=== PATIENT | male | born 1960 | race Caucasian/White ===

== ENCOUNTER → 2017-01-01 | Outpatient (CLI) | payer OTHER ==
[2017-01-01 11:58] LABS: Basophils # (A) 0.1 k/uL (0-0.2); Basophils % (A) 1 %; CHCM 33.3; Eosinophils # (A) 0.1 k/uL (0-0.7); Eosinophils % (A) 1 %; HCT 53.7 % (39.0-53.0); HDW 2.59; HGB 17.6 gm/dL (13.0-17.5); Luc # (Auto) 0.14; Luc % (Auto) 2; Lymphocytes # (A) 1.6 k/uL (1.0-4.8); Lymphocytes % (A) 22 %; MCH 30.7 pg (25.0-35.0); MCHC 32.9 g/dL (31.0-37.0); MCV 93.4 fL (80.0-100.0); Mean Platelet Volume 7.3; Monocytes # (A) 0.4 k/uL (0-1.0); Monocytes % (A) 5 %; Neutrophils # (A) 4.9 k/uL (1.3-7.7); Neutrophils % (A) 69 %; RBC 5.75 m/uL (4.30-5.90); RDW 13.9 % (11.5-15.5); WBC 7.2 k/uL (3.8-10.6); WBC (Perox) 6.69
[2017-01-01 12:14] LABS: ALT 42 U/L (21-72); AST 27 U/L (17-59); Alkaline Phosphatase 60 U/L (38-126); Anion Gap 9 mmol/L; Blood Urea Nitrogen 17 mg/dL (9-20); Calcium 9.7 mg/dL (8.4-10.2); Carbon Dioxide 28 mmol/L (22-30); Chloride 106 mmol/L (98-107); Glucose 101 mg/dL (74-99); Non-African American GFR(MDRD) >60 (>60 ml/min/1.73 sqM); Potassium 4.5 mmol/L (3.5-5.1); Sodium 143 mmol/L (137-145); Total Bilirubin 0.7 mg/dL (0.2-1.3); Total Protein 7.3 g/dL (6.3-8.2)
[2017-01-01 12:24] LABS: INR 1.1 (<1.1); Prothrombin Time 10.8 sec (9.0-12.0)
[2017-01-01 12:44] LABS: Prostate Specific Antigen 3.14 ng/mL (0.00-4.00)
--- NOTE | 2017-01-01 13:52 | CT ---
EXAMINATION TYPE: CT abdomen pelvis w con DATE OF EXAM: 01/01/2017 COMPARISON: NONE HISTORY: ABDOMINAL PAIN BELOW UMBILICAL AREA [address] DLP: 1024 mGycm, Automated Exposure Control for Dose Reduction was Utilized. CONTRAST: CT scan of the abdomen and pelvis is performed with oral and with IV Contrast, patient injected with 100 mL of Omnipaque 300. FINDINGS: LUNG BASES: No significant abnormality is appreciated. LIVER/GB: There is nonspecific 1.6 cm hypodense lesion right hepatic dome posteriorly on axial image 12. Hounsfield units average 47. Solid lesion cannot be excluded. There is additional is nonspecific subcentimeter lesion anterior to this. PANCREAS: No significant abnormality is seen. SPLEEN: No significant abnormality is seen. ADRENALS: No significant abnormality is seen. KIDNEYS: No significant abnormality is seen. BOWEL: The oral contrast reaches level of rectum. There is no suspicious small or large bowel dilat ation seen. No suspicious bowel containing ventral wall hernia is seen. PROSTATE/SEMINAL VESICLES: Prostate gland is heterogeneous in appearance and slightly prominent in si ze bulging towards bladder base, clinical correlation for BPH is advised. LYMPH NODES: No greater than 1cm abdominal or pelvic lymph nodes are appreciated. OSSEOUS STRUCTURES: There is sacralized L5 segment. OTHER: There is tiny fat-containing umbilical hernia. There is possible 1.4 cm left epididymal the superior to testicle on axial image 87. IMPRESSION: 1. No significant acute finding is seen to account for patient's clinical symptoms. 2. Nonspecific 1. 6 cm right hepatic dome lesion, solid lesion cannot be excluded, follow-up nonemergent multiphasic candace protocol contrast-enhanced CT or MRI can be performed to further evaluate and characterize if phil ired. 3. Other incidental findings as noted above. Case discussed with ordering nurse practitioner via telephone at time of dictation.
== END ==
LOC: RADCTMAIN 11:20
PROVIDERS: ATTEND Nurse Practitioner Adult Health
DX: Z08 Encounter for follow-up examination after completed treatment for malignant neoplasm (principal); Z12.5 Encounter for screening for malignant neoplasm of prostate; R04.0 Epistaxis; M54.5 Low back pain
CPT/HCPCS: 84153; 80053; 85025; 85610; 74177; 36415; Q9967

== ENCOUNTER → 2017-01-04 | Outpatient (CLI) | payer OTHER ==
--- NOTE | 2017-01-04 09:06 | US ---
EXAMINATION TYPE: US prostate transrectal DATE OF EXAM: 01/04/2017 COMPARISON: CT from 3 days ago. CLINICAL HISTORY: N40.[address] This examination was performed using the transrectal probe. EXAM MEASUREMENTS: Gland Size: 4.3 x 3.0 x 4.7 Volume: 32.1 ml Predicted PSA: 3.85 Actual PSA (if available):3.14 Heterogeneous gland without specific nodule seen. Initial images show seminal vesicles to appear within normal limits. Prostate gland is confirmed slig htly enlarged in size and heterogeneous in appearance. No worrisome nodules are identified. IMPRESSION: Slightly enlarged prostate gland consistent with BPH is confirmed. No worrisome nodules are evident.
--- NOTE | 2017-01-04 09:07 | US ---
EXAMINATION TYPE: US scrotum with doppler. Grayscale and color Doppler Duplex imaging performed of t jose de jesus scrotum. DATE OF EXAM: 01/04/2017 COMPARISON: CT CLINICAL HISTORY: N50.3 cyst of epididymis. EXAM MEASUREMENTS: TESTICLES: Right Testicle: 4.6 x 1.3 x 2.4 cm Left Testicle: 3.2 x 1.5 x 2.6 cm EPIDIDYMIS HEAD: Right Epididymis: 1.0 x 0.7 cm Left Epididymis: 0.9 x 0.4 cm Doppler performed to assess for testicular vascularity; good bilateral color flow and waveforms are s een. There is no evidence of testicular torsion. Heterogeneous echotexture to right testicle. 1.8 x 1.2 cm cystic area, spermatocele versus epi head c yst, small amount of free fluid adjacent to this. IMPRESSION: 1. ABNORMAL APPEARANCE TO THE RIGHT TESTICLE. AN INFILTRATIVE PROCESS IS NOT EXCLUDED. 2. LEFT EPIDIDYMAL HEAD CYST. RECOMMENDATION: Urologic consult.
== END | disposition home or self-care (01) ==
LOC: RADUSMAIN 07:58
PROVIDERS: ATTEND Family Medicine
DX: N50.3 Cyst of epididymis (principal); N40.0 Benign prostatic hyperplasia without lower urinary tract symptoms; R93.8 Abnormal findings on diagnostic imaging of other specified body structures
CPT/HCPCS: 76870; 76872; 93975

== ENCOUNTER → 2017-02-12 | Outpatient (CLI) | payer OTHER ==
--- NOTE | 2017-02-12 21:13 | MR ---
EXAMINATION TYPE: MR liver wo/w con DATE OF EXAM: 02/12/2017 COMPARISON: CT abdomen and pelvis January 01, 2017. HISTORY: Abnormal findings on CT 01/01/2017. Unspecified liver disease also per order. CONTRAST: Standard multiplanar, multisequence MRI departmental protocol utilizing 15 mL intravenous MultiHance gadolinium contrast. Exam is performed of the abdomen focusing on liver. FINDINGS: LIVER/BILIARY SYSTEM: Liver is overall normal in size. Corresponding to abnormal lesion right hepatic dome there is roughly 1.4 x 0.9 cm oval lesion of T1 hypointensity and T2 hyperintensity. Dynamic po stcontrast images show some heterogeneous peripheral enhancement with progressive centripetal filling . Imaging characteristics consistent with hemangioma. Anterior to this is scattered throughout the re mainder of liver there are 4-6 additional subcentimeter lesions of similar imaging characteristics fe lt to reflect additional smaller hemangiomas. No worrisome intrahepatic or extra hepatic biliary dila tation is seen. Gallbladder is unremarkable. OTHER: Lung bases are clear. The spleen, pancreas, and both adrenal glands are normal in size and carolee ear grossly unremarkable. No suspicious solid or cystic renal mass or hydronephrosis is evident bilat erally. There is suspected tiny simple elongated subcentimeter cyst posteriorly upper pole level left kidney on coronal image 34 series 301. No suspicious bowel dilatation seen. No concerning abdominal fluid collection is present. No greater than 1 cm abdominal adenopathy is identified. Visualized osse ous structures are intact. IMPRESSION: Suspicious liver lesion on CT has imaging characteristics consistent with hemangioma. Seen better on MRI versus CT there are 4-6 additional scattered subcentimeter lesions of similar imaging characteris tics consistent with smaller benign hemangiomas. No worrisome solid or cystic intrahepatic mass is pr esent.
== END | disposition home or self-care (01) ==
LOC: RADMRIMAIN 18:02
PROVIDERS: ATTEND Nurse Practitioner Adult Health
DX: K76.9 Liver disease, unspecified (principal)
CPT/HCPCS: 74183; A9577

== ENCOUNTER → 2017-02-22 | Outpatient (CLI) | payer OTHER ==
--- NOTE | 2017-02-22 17:12 | XR ---
EXAMINATION TYPE: XR thoraco lumbar junction DATE OF EXAM: 02/22/2017 COMPARISON: NONE HISTORY: Back pain TECHNIQUE: 2 views FINDINGS: Frontal and lateral views of the lumbar spine including the lower thoracic spine were obtai saundra. Vertebra are normal alignment. There is mild anterior spurring at T11-12 and T12-L1. There is no comp ression fracture. Posterior elements appear intact. IMPRESSION: Mild spurring. No fracture seen.
== END | disposition home or self-care (01) ==
LOC: RADXRMAIN 16:47
PROVIDERS: ATTEND Nurse Practitioner Adult Health
DX: M46.05 Spinal enthesopathy, thoracolumbar region (principal)
CPT/HCPCS: 72080

== ENCOUNTER 2018-07-04 08:43 | Day surgery (SDC) | payer OTHER ==
[2018-07-01 15:24] VITALS: BMI 25.8
[~2018-07-04 08:43] MED LIST: LACTATED RINGERS 1,000 ML IV SCH; MORPHINE SULFATE 2 MG/ML SYRINGE IV PRN; ceFAZolin IN SWFI 2 GM/20 ML SYRINGE IVP ONE
[2018-07-04 11:20] VITALS: TEMP 97.8
[2018-07-04] MEDS ORDERED: LIDOCAINE 1% 20 ML VIAL (10MG/ML) FOR IV START INTRADERMA ONE (11:22)
[2018-07-04] MEDS ORDERED: ONDANSETRON 4 MG/2 ML VIAL IVP ONE ×2 (12:11→15:10)
[2018-07-04] MEDS ORDERED: DEXAMETHASONE SOD PHOSPHATE 10 MG/ML 1 ML VIAL IV ONE (12:12)
[2018-07-04] MEDS ORDERED: fentaNYL (PF) 50 MCG/ML 2 ML AMP IV ONE ×2 (12:15→12:30)
[2018-07-04] MEDS ORDERED: ROCURONIUM BROMIDE 10 MG/ML 10 ML VIAL IV ONE (12:29)
[2018-07-04] MEDS ORDERED: PROPOFOL 10 MG/ML 20 ML VIAL IV ONE (12:29)
[2018-07-04] MEDS ORDERED: LIDOCAINE 1% INJ 10MG/ML (20 ML MDV) ONE (12:29)
[2018-07-04] MEDS ORDERED: HYDROmorphone (PF) 1 MG/ML ONE (12:29)
[2018-07-04] MEDS ORDERED: fentaNYL (PF) 50 MCG/ML 2 ML AMP ONE (12:29)
[2018-07-04] MEDS ORDERED: SUCCINYLCHOLINE CHLORIDE 100 MG/5 ML SYR IV ONE (12:29)
[2018-07-04] MEDS ORDERED: MIDAZOLAM 2 MG/2 ML VIAL ONE (12:29)
[2018-07-04] MEDS ORDERED: LACTATED RINGERS 1,000 ML IV ONE (14:02)
--- NOTE | 2018-07-04 15:00 | P.OP ---
Date of Procedure: 07/04/18 Preoperative Diagnosis: 1. Closed left bimalleolar ankle fracture 2. Closed left proximal fibula fracture 3. Left ankle syndesmotic disruption Postoperative Diagnosis: 1. Closed left bimalleolar ankle fracture with highly comminuted fibula and completely displaced medial malleolus fracture 2. Left ankle syndesmotic disruption 3. Left proximal fibula fracture Procedure(s) Performed: 1. Open reduction and internal fixation of left bimalleolar ankle fracture 2. Open reduction and internal fixation of left ankle syndesmosis 3. Nonoperative management left proximal fibula fracture [facility], regional Surgeon: Vitaly Easton Credit Product Analyst #1: Margaret Valenzuela Estimated Blood Loss (ml): 10 IV fluids (ml): 1,200 Pathology: none sent Condition: stable Disposition: PACU Indications for Procedure: The patient is a very pleasant previously healthy 57-year-old male who sustained a closed left ankle fracture dislocation several weeks ago. He was initially seen at [facility] and his initial care was provided by a physician covering for [facility] through [facility]. The temporary physician left [facility] and the patient had no follow-up so was referred to our office. He was found to have a significantly displaced and comminuted ankle fracture. He was sent for a computed tomography scan which showed a highly comminuted fibula fracture completely displaced and rotated medial malleolus fracture and likely syndesmotic disruption. Once the soft tissue swelling resolved we planned surgery. The patient and his are aware of the potential risks and competitions of surgery including but not limited to risk of anesthesia, superficial infection, deep infection, delayed wound healing, wound necrosis, damage to local blood vessels or nerves, risk of malreduction of the fracture, risk of nonunion, risk of malunion, risk of postoperative displacement of the ankle joint or fracture, risk of hardware failure, risk of chronic pain, risk of chronic swelling, risk of need for further surgery, DVT, PE, other medical complications, posterior medical arthritis, generalized to satisfaction with surgery, risk of an inability to regain preinjury level of function, and possibly loss of life or limb. The patient voices understanding of these potential complications and also acknowledges that there are other less common complications that are possible and provided his verbal and written consent to go forward with surgery. Operative Findings: The left fibula fracture was highly comminuted and the fracture hematoma was not violated. The medial malleolus was flipped and rotated with the distal fragment unable to be reduced closed due to the posterior tibial tendon a incarcerated. The syndesmosis was also obviously disrupted Description of Procedure: The patient was identified Holding and the correct left ankle was marked with my initials. I reviewed the consent form with the patient and his . All their questions were answered. The patient was then brought back to the operating room. He was positioned on the OR table where a general anesthetic and preoperative antibiotics were administered. All bony prominences were well-padded. Comparison x-rays of the right ankle including a mortise and true talar dome overlap lateral were obtained to use as a template for reduction of the left ankle. A tourniquet was applied the proximal aspect the left leg. A bump was placed under the left buttock internally rotating the leg to neutral. A ramp was placed under the left leg to facilitate imaging. The left leg was then prepped and draped in the standard sterile fashion. Prior to starting surgery timeout was performed identifying the correct patient, operative extremity, and procedure. The patient's leg was then elevated, exsanguinated with an Esmarch bandage, the tourniquet was inflated to 250 mmHg. I began by addressing the medial malleolus. A longitudinal incision was marked out over the medial malleolus. Skin incision was made a scalpel and dissection was carried down carefully to the subcutaneous tissue with tenotomy scissors. The medial malleolus fracture was flipped and rotated 180. The fracture was exposed and early callus and hematoma were sharply debrided. The posterior tibial tendon was found to be incarcerated between the 2 fragments and was released. The medial malleolus fragment was then flipped back into place area 2.0 mm drill bit was used to perforate the bone proximal to the fracture and the distal digit. A large [id number] reduction clamp was placed with 1 mary in this drill hole and the other mary over the tip of the medial malleolus fracture fragment. The reduction clamp was gently tightened. Clinically the fracture appeared to be anatomically reduced both at the shoulder of the ankle mortise and along the medial aspect of the ankle. Fluoroscopy was used to verify reduction of the fracture. A 2.5 mm drill bit was used to create paths anteriorly and posteriorly to the reduction clamp. Fully threaded, solid 3.5 mm screws measuring 55 mm were placed generating excellent compression of fracture. Attention was then turned to the lateral aspect of the ankle. A longitudinal incision was made with a 15 blade scalpel over the lateral malleolus and distal fibula. Dissection was carried to the subcu tenderness tissue tenotomy scissors. The fracture hematoma directly over the fracture was left intact so as to not violate the comminution. The fibula was exposed distally and proximally. A pointed reduction clamp was used to grasp the distal portion of the lateral malleolus. Using longitudinal traction fibular length was restored and compared to the comparison x-rays of the right ankle. Once the fibular length was restored and the ankle mortise was reduced a K wire was placed through the distal fracture fragment holding it in place. A one third tubular plate was then placed over the lateral aspect of the fibula. A 3.5 mm nonlocking screw was placed just proximal to the area of comminution bring the plate down to bone. An additional 22.5 mm screws were placed proximally in the plate. Three 3.5 mm nonlocking screws were then placed in the distal fracture fragment. Dissection was then carried anteriorly to the distal fibula and the incisura was visualized. The fibula was subluxed anteriorly. The fibula was gently pushed posteriorly into the incisura and pinned into place. Fluoroscopy was used to assess reduction. The medial clear space was reduced and the fibula appeared symmetric to the contralateral x-rays. 2 syndesmotic screws were then placed. Final fluoroscopic images were taken showing reduction of the ankle mortise, reduction of the syndesmosis, and jewish of fibular length. Both wounds were then copiously irrigated and closed in layers with 3- 0 nylon Algor modification of the Donati stitch in the skin. Brown quarter and stretchy Steri-Strips were placed. A sterile dressing consisting of Betadine soaked Adaptic, 4 x 4, and web roll was applied. A well-padded bulky Parekh splint was placed with the ankle at neutral. The patient was then awoken from his anesthetic, transferred to a gurney, and brought to PACU without the procedure well. Hayley Valenzuela PA-C was required as a skilled assistant engineer for patient positioning, surgical exposure, reduction of fractures, placement of hardware, closure of wounds, and application of splint. Plan: The patient is going to be discharged home as an outpatient. He is remain strictly nonweightbearing on his operative extremity. He is to use crutches or knee scooter for ambulation. He will be given Percocet for pain. He is encouraged ice and elevate his leg. He'll take aspirin 1025 mg daily for DVT prophylaxis. He'll follow-up in 2 weeks for splint removal and x-rays of the ankle out of the splint.
[2018-07-04] MEDS ORDERED: PHYSOSTIGMINE SALICYLATE 1 MG/ML 2 ML AMP IVP ONE (15:08)
--- NOTE | 2018-07-04 15:24 | FL ---
EXAMINATION TYPE: FL guidance operating room, XR ankle limited LT DATE OF EXAM: 07/04/2018 CLINICAL HISTORY: Open reduction internal fixation of the left ankle fracture. Fluoroscopic documenta tion. TECHNIQUE: Fluoroscopy. COMPARISON: None. FINDINGS/IMPRESSION: Fluoroscopic guidance was provided during procedure performed by Dr. Easton. A total of 2 minutes and 40 seconds of fluoroscopic time was utilized during the procedure and 7 spo t images was acquired during open reduction internal fixation of a left ankle fracture.
[2018-07-04] MEDS: HYDROmorphone 0.5 MG/0.5 ML SYRINGE IVP PRN ×2 (15:50→15:57)
[2018-07-04 15:53] VITALS: RESP 16
[2018-07-04] MEDS ORDERED: MEPERIDINE 50 MG/ML SYRINGE IVP ONE (16:04)
[2018-07-04] MEDS ORDERED: oxyCODONE-APAP 5-325MG 1 EACH TAB PO ONE (16:34)
[2018-07-04 16:52] VITALS: PULSE 101
[2018-07-04 17:07] VITALS: BP 129/82
--- NOTE | 2018-07-04 17:35 | P.ONQ ---
Anesthesiology Proc Note - PNB - Peripheral Nerve Block Performed Left Popliteal Single Time Out Performed: Yes Procedure Start Time: 15:36 Indication: Acute Post-Operative Pain Sedation Type: Sedate with meaningful contact maintained Preparation: Sterile Prep Position: Supine (Right lateral) Catheter: None Needle Types: Other (see comment) (Justin) Needle Size: 50mm (2") Needle Gauge: 21 Technique: Ultrasound Injectate: 0.5% Ropivacaine (see comment for volume) (30cc) Blood Aspirated: No Pain Paresthesia on Injection Noted: No Resistance on Injection: Normal Events: Uneventful and Well Tolerated
== END 2018-07-04 17:36 | disposition home or self-care (01) ==
LOC: OR 08:43
PROVIDERS: ATTEND Orthopaedic Surgery
DX: S82.842A Displaced bimalleolar fracture of left lower leg, initial encounter for closed fracture (principal); S82.492A Other fracture of shaft of left fibula, initial encounter for closed fracture; S93.439A Sprain of tibiofibular ligament of unspecified ankle, initial encounter; W13.2XXA Fall from, out of or through roof, initial encounter; Z87.891 Personal history of nicotine dependence; Z79.891 Long term (current) use of opiate analgesic
CPT/HCPCS: 27814; 27829; 64450; 73600; C1713; J2250; J1100; J2175; J2405; J2001; J3010; J1170 ×2; J0330; J2704; J0690; 64493

== ENCOUNTER 2018-11-12 16:03 | Emergency (ER) | payer OTHER ==
[2018-11-12 16:08] VITALS: TEMP 98.8
[2018-11-12] MEDS ORDERED: SODIUM CHLORIDE 0.9% 1,000 ML IV STA ×3 (16:18→17:00)
--- NOTE | 2018-11-12 16:31 | ED ---
General Adult HPI - General Chief complaint: Chest Pain Stated complaint: Chest Pain, Vomiting Time Seen by Provider: 11/12/18 16:10 Source: patient, family, RN notes reviewed Mode of arrival: wheelchair Limitations: no limitations - History of Present Illness Initial comments: This is a 58-year-old male with a history of left ankle surgery in the past who states he had the onset 3 days ago of fever of over 102 dry heaves some chest pain abdominal pain headache lightheadedness decreased oral intake he also diarrhea. He has generalized body aches he also states. He's got leg pain radiates up from the left ankle upward. No focal deficits. Chest pain is described as sharp left costal sternal margin area costochondral margin area. He denies any pain right now.. Abdominal pain is upper abdominal and epigastric region location he is unable to describe it any further tests time. - Related Data Home Medications Medication Instructions Recorded Confirmed Fish Oil/Dha/Epa [Fish Oil 1,200 1 cap PO DAILY 07/02/18 11/12/18 mg Fish Oil] Multivitamins, Thera [Multivitamin 1 tab PO DAILY 07/02/18 11/12/18 (formulary)] HYDROcodone/APAP 7.5-325MG [[place] 1 tab PO Q6H PRN 11/12/18 11/12/18 7.5-325] Multivitamins, Thera [Multivitamin 1 tab PO DAILY 11/12/18 11/12/18 (formulary)] PARoxetine [Paxil] 20 mg PO DAILY 11/12/18 11/12/18 traZODone HCL 50 mg PO HS PRN 11/12/18 11/12/18 Previous Rx's Medication Instructions Recorded Magnesium 200 mg PO DAILY #7 tablet 11/12/18 Ondansetron Odt [Zofran Odt] 4 mg PO Q8HR PRN #10 tab 11/12/18 Allergies Allergy/AdvReac Type Severity Reaction Status Date / Time No Known Allergies Allergy Verified 11/12/18 17:21 Review of Systems ROS Statement: Those systems with pertinent positive or pertinent negative responses have been documented in the HPI. ROS Other: All systems not noted in ROS Statement are negative. Past Medical History Past Medical History: No Reported History Additional Past Medical History / Comment(s): mult fx left ankle May seen in ER at [facility] Surgical History of Any Multi-Drug Resistant Organisms: None Reported Past Surgical History: Hernia Repair Additional Past Surgical History / Comment(s): INGUINAL HERNIA REPAIR AT 8 YRS OLD Past Anesthesia/Blood Transfusion Reactions: No Reported Reaction Additional Past Anesthesia/Blood Transfusion Reaction / Comment(s): no hx blood transfusion Past Psychological History: No Psychological Hx Reported Smoking Status: Never smoker Past Alcohol Use History: Occasional Past Drug Use History: None Reported - Past Family History Sister(s) Family Medical History: Cancer Mother Family Medical History: Cancer Additional Family Medical History / Comment(s): COLON CANCER Brother(s) Family Medical History: Myocardial Infarction ([place]) Additional Family Medical History / Comment(s): TWIN BROTHER HAD [place]. OLDER BROTHER HAD HEART CATH WITH STENT PLACEMENT General Exam - General Exam Comments Initial Comments: This a well-developed well-nourished awake alert anxious oriented 3 male Limitations: no limitations General appearance: alert, anxious Head exam: Present: atraumatic, normocephalic, normal inspection Eye exam: Present: normal appearance, PERRL, EOMI. Absent: scleral icterus, conjunctival injection, periorbital swelling ENT exam: Present: mucous membranes dry, other (Boggy nasal mucosa) Neck exam: Present: normal inspection. Absent: tenderness, meningismus, lymphadenopathy Respiratory exam: Present: normal lung sounds bilaterally, chest wall tenderness (Reproducible tenderness palpation over left costal sternal costochondral margin no step-off or crepitation). Absent: respiratory distress, wheezes, rales, rhonchi, stridor Cardiovascular Exam: Present: regular rate, normal rhythm, normal heart sounds. Absent: systolic murmur, diastolic murmur, rubs, gallop, clicks GI/Abdominal exam: Present: soft, tenderness (Mild left upper quadrant tenderness no guarding rebound masses or bruits), normal bowel sounds. Absent: distended, guarding, rebound, rigid Extremities exam: Present: full ROM, tenderness (I did remove the patient's boot on his left foot and ankle he does have well-healed surgical scars there is some mild tenderness over the Achilles tendon and no evidence of defect no erythema no wound dehiscence or drainage or discharge. No calf tenderness or swelling noted at this time.), normal capillary refill. Absent: pedal edema, joint swelling, calf tenderness Back exam: Present: normal inspection Neurological exam: Present: alert, oriented X3, CN II-XII intact Psychiatric exam: Present: normal affect, anxious Skin exam: Present: warm, dry, intact, normal color. Absent: rash Course Vital Signs 11/12/18 11/12/18 11/12/18 16:04 16:30 17:00 Temperature 98.8 F Pulse Rate 71 90 Respiratory 18 21 10 L Rate Blood Pressure 128/77 139/93 127/82 O2 Sat by Pulse 99 98 97 Oximetry 11/12/18 11/12/18 17:30 18:00 Temperature Pulse Rate 80 96 Respiratory 11 L 13 Rate Blood Pressure 126/84 112/71 O2 Sat by Pulse 97 98 Oximetry EKG Findings - EKG Results: EKG: interpreted by ERMD, sinus rhythm, normal axis, normal QRS, no acute changes (Normal sinus rhythm a 78. Interval 122 QRS duration 88 QT since QTC 338/35 this is a normal-appearing EKG.) Medical Decision Making - Medical Decision Making Patient feels much better. The presentation consistent with viral syndrome and dehydration. He will keep his follow-up appointments as planned. He will get a prescription for Zofran ODT. - Lab Data Result diagrams: 11/12/18 16:25 11/12/18 16:25 Lab Results 11/12/18 11/12/18 11/12/18 Range/Units 16:25 16:25 16:25 WBC 6.0 (3.8-10.6) k/uL RBC 5.42 (4.30-5.90) m/uL Hgb 16.6 (13.0-17.5) gm/dL Hct 49.4 (39.0-53.0) % MCV 91.3 (80.0-100.0) fL MCH 30.6 (25.0-35.0) pg MCHC 33.5 (31.0-37.0) g/dL RDW 15.7 H (11.5-15.5) % Plt Count 195 (150-450) k/uL Neutrophils % 80 % Lymphocytes % 13 % Monocytes % 4 % Eosinophils % 1 % Basophils % 0 % Neutrophils # 4.8 (1.3-7.7) k/uL Lymphocytes # 0.8 L (1.0-4.8) k/uL Monocytes # 0.2 (0-1.0) k/uL Eosinophils # 0.1 (0-0.7) k/uL Basophils # 0.0 (0-0.2) k/uL PT 9.7 (9.0-12.0) sec INR 0.9 (<1.2) APTT 23.1 (22.0-30.0) sec D-Dimer 0.37 (<0.60) mg/L FEU Sodium 139 (137-145) mmol/L Potassium 4.4 (3.5-5.1) mmol/L Chloride 109 H (98-107) mmol/L Carbon Dioxide 19 L (22-30) mmol/L Anion Gap 11 mmol/L BUN 25 H (9-20) mg/dL Creatinine 0.87 (0.66-1.25) mg/dL Est GFR (CKD-EPI)AfAm >90 (>60 ml/min/1.73 sqM) Est GFR (CKD-EPI)NonAf >90 (>60 ml/min/1.73 sqM) Glucose 141 H (74-99) mg/dL Plasma Lactic Acid Elvis (0.7-2.0) mmol/L Calcium 10.0 (8.4-10.2) mg/dL Magnesium 1.7 (1.6-2.3) mg/dL Total Bilirubin 0.5 (0.2-1.3) mg/dL AST 32 (17-59) U/L ALT 38 (21-72) U/L Alkaline Phosphatase 74 (38-126) U/L Creatine Kinase 73 (55-170) U/L Troponin I (0.000-0.034) ng/mL NT-Pro-B Natriuret Pep pg/mL Total Protein 6.8 (6.3-8.2) g/dL Albumin 4.3 (3.5-5.0) g/dL Amylase 86 (30-110) U/L Lipase 111 (23-300) U/L Urine Color Urine Appearance (Clear) Urine pH (5.0-8.0) Ur Specific [place] (1.001-1.035) Urine Protein (Negative) Urine Glucose (UA) (Negative) Urine Ketones (Negative) Urine Blood (Negative) Urine Nitrite (Negative) Urine Bilirubin (Negative) Urine Urobilinogen (<2.0) mg/dL Ur Leukocyte Esterase (Negative) Urine RBC (0-5) /hpf Urine WBC (0-5) /hpf Hyaline Casts (0-2) /lpf Urine Mucus (None) /hpf Influenza Type A RNA (Not Detectd) Influenza Type B (PCR) (Not Detectd) 11/12/18 11/12/18 11/12/18 Range/Units 16:25 16:25 16:25 WBC (3.8-10.6) k/uL RBC (4.30-5.90) m/uL Hgb (13.0-17.5) gm/dL Hct (39.0-53.0) % MCV (80.0-100.0) fL MCH (25.0-35.0) pg MCHC (31.0-37.0) g/dL RDW (11.5-15.5) % Plt Count (150-450) k/uL Neutrophils % % Lymphocytes % % Monocytes % % Eosinophils % % Basophils % % Neutrophils # (1.3-7.7) k/uL Lymphocytes # (1.0-4.8) k/uL Monocytes # (0-1.0) k/uL Eosinophils # (0-0.7) k/uL Basophils # (0-0.2) k/uL PT (9.0-12.0) sec INR (<1.2) APTT (22.0-30.0) sec D-Dimer (<0.60) mg/L FEU Sodium (137-145) mmol/L Potassium (3.5-5.1) mmol/L Chloride (98-107) mmol/L Carbon Dioxide (22-30) mmol/L Anion Gap mmol/L BUN (9-20) mg/dL Creatinine (0.66-1.25) mg/dL Est GFR (CKD-EPI)AfAm (>60 ml/min/1.73 sqM) Est GFR (CKD-EPI)NonAf (>60 ml/min/1.73 sqM) Glucose (74-99) mg/dL Plasma Lactic Acid Elvis 2.4 H* (0.7-2.0) mmol/L Calcium (8.4-10.2) mg/dL Magnesium (1.6-2.3) mg/dL Total Bilirubin (0.2-1.3) mg/dL AST (17-59) U/L ALT (21-72) U/L Alkaline Phosphatase (38-126) U/L Creatine Kinase (55-170) U/L Troponin I <0.012 (0.000-0.034) ng/mL NT-Pro-B Natriuret Pep 41 pg/mL Total Protein (6.3-8.2) g/dL Albumin (3.5-5.0) g/dL Amylase (30-110) U/L Lipase (23-300) U/L Urine Color Urine Appearance (Clear) Urine pH (5.0-8.0) Ur Specific [place] (1.001-1.035) Urine Protein (Negative) Urine Glucose (UA) (Negative) Urine Ketones (Negative) Urine Blood (Negative) Urine Nitrite (Negative) Urine Bilirubin (Negative) Urine Urobilinogen (<2.0) mg/dL Ur Leukocyte Esterase (Negative) Urine RBC (0-5) /hpf Urine WBC (0-5) /hpf Hyaline Casts (0-2) /lpf Urine Mucus (None) /hpf Influenza Type A RNA (Not Detectd) Influenza Type B (PCR) (Not Detectd) 11/12/18 11/12/18 Range/Units 16:30 16:44 WBC (3.8-10.6) k/uL RBC (4.30-5.90) m/uL Hgb (13.0-17.5) gm/dL Hct (39.0-53.0) % MCV (80.0-100.0) fL MCH (25.0-35.0) pg MCHC (31.0-37.0) g/dL RDW (11.5-15.5) % Plt Count (150-450) k/uL Neutrophils % % Lymphocytes % % Monocytes % % Eosinophils % % Basophils % % Neutrophils # (1.3-7.7) k/uL Lymphocytes # (1.0-4.8) k/uL Monocytes # (0-1.0) k/uL Eosinophils # (0-0.7) k/uL Basophils # (0-0.2) k/uL PT (9.0-12.0) sec INR (<1.2) APTT (22.0-30.0) sec D-Dimer (<0.60) mg/L FEU Sodium (137-145) mmol/L Potassium (3.5-5.1) mmol/L Chloride (98-107) mmol/L Carbon Dioxide (22-30) mmol/L Anion Gap mmol/L BUN (9-20) mg/dL Creatinine (0.66-1.25) mg/dL Est GFR (CKD-EPI)AfAm (>60 ml/min/1.73 sqM) Est GFR (CKD-EPI)NonAf (>60 ml/min/1.73 sqM) Glucose (74-99) mg/dL Plasma Lactic Acid Elvis (0.7-2.0) mmol/L Calcium (8.4-10.2) mg/dL Magnesium (1.6-2.3) mg/dL Total Bilirubin (0.2-1.3) mg/dL AST (17-59) U/L ALT (21-72) U/L Alkaline Phosphatase (38-126) U/L Creatine Kinase (55-170) U/L Troponin I (0.000-0.034) ng/mL NT-Pro-B Natriuret Pep pg/mL Total Protein (6.3-8.2) g/dL Albumin (3.5-5.0) g/dL Amylase (30-110) U/L Lipase (23-300) U/L Urine Color Yellow Urine Appearance Clear (Clear) Urine pH 6.0 (5.0-8.0) Ur Specific [place] 1.033 (1.001-1.035) Urine Protein 1+ H (Negative) Urine Glucose (UA) Negative (Negative) Urine Ketones Negative (Negative) Urine Blood Negative (Negative) Urine Nitrite Negative (Negative) Urine Bilirubin Negative (Negative) Urine Urobilinogen <2.0 (<2.0) mg/dL Ur Leukocyte Esterase Negative (Negative) Urine RBC 1 (0-5) /hpf Urine WBC 3 (0-5) /hpf Hyaline Casts 1 (0-2) /lpf Urine Mucus Moderate H (None) /hpf Influenza Type A RNA Not Detected (Not Detectd) Influenza Type B (PCR) Not Detected (Not Detectd) - Radiology Data Radiology results: report reviewed (I did review the imaging and report no acute findings.), image reviewed Disposition Clinical Impression: Viral syndrome, Chest wall syndrome, Dehydration, Gastroenteritis Disposition: HOME SELF-CARE Condition: Good Instructions (If sedation given, give patient instructions): Chest Pain (ED) Prescriptions: Magnesium 200 mg PO DAILY #7 tablet Ondansetron Odt [Zofran Odt] 4 mg PO Q8HR PRN #10 tab PRN Reason: Nausea Is patient prescribed a controlled substance at d/c from ED?: No Referrals: Otto Joshi MD [Primary Care Provider] - 1-2 days
[2018-11-12] MEDS ORDERED: KETOROLAC 30 MG/ML 1 ML VIAL IVP STA (16:32)
[2018-11-12] MEDS ORDERED: ONDANSETRON 4 MG/2 ML VIAL IVP STA (16:33)
[2018-11-12 16:38] LABS: Basophils % (A) 0 %; Eosinophils # (A) 0.1 k/uL (0-0.7); Eosinophils % (A) 1 %; HCT 49.4 % (39.0-53.0); HGB 16.6 gm/dL (13.0-17.5); Lymphocytes # (A) 0.8 k/uL (1.0-4.8); Lymphocytes % (A) 13 %; MCH 30.6 pg (25.0-35.0); MCHC 33.5 g/dL (31.0-37.0); MCV 91.3 fL (80.0-100.0); Mean Platelet Volume 7.6; Monocytes # (A) 0.2 k/uL (0-1.0); Monocytes % (A) 4 %; Neutrophils # (A) 4.8 k/uL (1.3-7.7); Neutrophils % (A) 80 %; Platelet Count 195 k/uL (150-450); RBC 5.42 m/uL (4.30-5.90); RDW 15.7 % (11.5-15.5)
[2018-11-12 16:48] LABS: ALT 38 U/L (21-72); AST 32 U/L (17-59); Albumin 4.3 g/dL (3.5-5.0); Alkaline Phosphatase 74 U/L (38-126); Amylase 86 U/L (30-110); Anion Gap 11 mmol/L; Blood Urea Nitrogen 25 mg/dL (9-20); Carbon Dioxide 19 mmol/L (22-30); Chloride 109 mmol/L (98-107); Creatine Kinase 73 U/L (55-170); Glucose 141 mg/dL (74-99); Lipase 111 U/L (23-300); Magnesium 1.7 mg/dL (1.6-2.3); Potassium 4.4 mmol/L (3.5-5.1); Sodium 139 mmol/L (137-145); Total Bilirubin 0.5 mg/dL (0.2-1.3); Total Protein 6.8 g/dL (6.3-8.2)
[2018-11-12 16:49] LABS: D-Dimer 0.37 mg/L FEU (<0.60); INR 0.9 (<1.2); Partial Thromboplastin Time 23.1 sec (22.0-30.0); Prothrombin Time 9.7 sec (9.0-12.0)
[2018-11-12 17:04] LABS: Appearance,Urine Clear (Clear); Bilirubin,Urine Negative (Negative); Blood,Urine Negative (Negative); Color,Urine Yellow; Glucose,Urine (UA) Negative (Negative); Hyaline Casts,Urine 1 /lpf (0-2); Ketones,Urine Negative (Negative); Leukocyte Esterase,Urine Negative (Negative); Mucus,Urine Moderate /hpf; Nitrite,Urine Negative (Negative); Protein,Urine 1+ (Negative); RBC,Urine 1 /hpf (0-5); Specific Gravity,Urine 1.033 (1.001-1.035); Urobilinogen,Urine <2.0 mg/dL (<2.0); WBC,Urine 3 /hpf (0-5)
--- NOTE | 2018-11-12 17:20 | XR ---
EXAMINATION: XR chest 2V DATE AND TIME: 11/12/2018 4:57 PM CLINICAL INDICATION: PHH; Chest Pain TECHNIQUE: Departmental protocol COMPARISON: None FINDINGS: The lungs are clear. The pleural spaces are negative. The cardiac silhouette is not enlarged. The remainder of the mediastinal silhouette is unremarkable. The skeletal structures and soft tissues are negative for acute findings. IMPRESSION: NO ACUTE PROCESS.
[2018-11-12] MEDS ORDERED: HYDROmorphone 1 MG/ML 1 ML SYRINGE IVP STA (18:08)
[2018-11-12 19:16] VITALS: BP 119/70; PULSE 81; RESP 18
== END 2018-11-12 19:22 | disposition home or self-care (01) ==
LOC: EC 16:03
DX: K52.9 Noninfective gastroenteritis and colitis, unspecified (principal); B34.9 Viral infection, unspecified; R07.1 Chest pain on breathing; Z79.899 Other long term (current) drug therapy
CPT/HCPCS: 36415; 93005; 85379; 83880; 80053; 82150; 82550; 83605; 83690; 83735; 84484; 85025; 85610; 85730; 81001; 87040; 87502; 71046; 99285; 96374; 96375 ×2; 96361 ×3; J2405; J1885; J1170

== ENCOUNTER → 2019-04-21 | Outpatient (CLI) | payer OTHER ==
--- NOTE | 2019-04-23 06:12 | CT ---
EXAMINATION TYPE: CT ankle LT wo con DATE OF EXAM: 04/21/2019 COMPARISON: 06/25/2018 HISTORY: 58-year-old male Left ankle pain after injury in May 2018. TECHNIQUE: Contiguous axial scanning of the left ankle without IV contrast. Coronal and sagittal fernanda nstructions performed. 3-D reconstructions generated on a dedicated independent workstation. CT DLP: 256.7 mGycm Automated exposure control for dose reduction was used. FINDINGS: 2 fixation screws are demonstrated across the previous transverse medial malleolar fracture. Healing appears complete to near complete with minimal residual lucency seen along the posterior fracture mar gin, probably chronic now. There is some chronic articular surface bony gap where the fracture extend s to the tibiotalar joint measuring 2 mm wide and 2.5 cm AP. Small corticated bone fragments in the r egion of the deltoid ligament compatible with chronic ununited avulsion fragments. Lateral sideplate and multiple screw fixation across the distal fibula with healing of the patient's comminuted lateral malleolar fracture. There is heterotopic ossification across the lower carotid mem brane. 2 transsyndesmotic fixation screws are also present but both are fractured at the level of the tibial cortex. Small chronic ununited bone fragments are present at the expected sites of the anteri or inferior and posterior inferior tibiofibular ligaments. Disuse osteopenia. No acute fracture or dislocation seen. Generalized soft tissue swelling. IMPRESSION: 1. COMPLETE TO NEAR COMPLETE HEALING ACROSS THE FIXATED MEDIAL MALLEOLAR FRACTURE. MINIMAL RESIDUAL L UCENCY IS SEEN ALONG THE FAR POSTERIOR MARGIN OF THE FRACTURE WHICH MAY REPRESENT CHRONIC CONTOUR DEF ORMITY RATHER THAN A SITE OF INCOMPLETE BRIDGING. 2. HEALING OF THE PATIENT'S COMMINUTED DISTAL FIBULAR FRACTURE WITH INTACT LATERAL SIDEPLATE AND SCRE W FIXATION. 3. HOWEVER, BOTH OF THE TRANSSYNDESMOTIC SCREWS ARE FRACTURED AT THE LEVEL OF THE TIBIAL CORTEX. 4. HETEROTOPIC OSSIFICATION ALONG THE LOWER SYNDESMOSIS AND SMALL CHRONIC UNUNITED FRACTURE FRAGMENTS IN THE REGION OF THE DELTOID LIGAMENT WELL THE AITFL AND PITFL. 5. GENERALIZED SOFT TISSUE SWELLING.
== END ==
LOC: RADCTMAIN 15:21
PROVIDERS: ATTEND Orthopaedic Surgery
DX: S82.52XG Displaced fracture of medial malleolus of left tibia, subsequent encounter for closed fracture with delayed healing (principal); M79.89 Other specified soft tissue disorders; S82.842D Displaced bimalleolar fracture of left lower leg, subsequent encounter for closed fracture with routine healing; Z48.89 Encounter for other specified surgical aftercare; Z87.891 Personal history of nicotine dependence

== ENCOUNTER → 2019-09-15 | Outpatient (CLI) | payer OTHER ==
[2019-09-15 16:59] LABS: HCT 49.6 % (39.0-53.0); MCH 30.1 pg (25.0-35.0); MCHC 32.3 g/dL (31.0-37.0); Mean Platelet Volume 7.4; Platelet Count 227 k/uL (150-450); RBC 5.33 m/uL (4.30-5.90); RDW 13.5 % (11.5-15.5); WBC 7.3 k/uL (3.8-10.6)
[2019-09-15 17:41] LABS: C Reactive Protein <5.0 mg/L (<10.0)
[2019-09-15 18:34] LABS: Erythrocyte Sedimentation Rate 3 mm/hr (0-15)
[2019-09-15 23:47] LABS: Streptolysin O Ab(ASO) 62 IU/mL (0-200)
[2019-09-16 00:15] LABS: Rheumatoid Factor, Qnt 4 IU/mL (0-15)
--- NOTE | 2019-09-16 03:03 | MR ---
EXAMINATION TYPE: MR ankle LT wo con DATE OF EXAM: 09/15/2019 COMPARISON: None HISTORY: Left ankle pain Multiplanar multiecho imaging of the left ankle was performed with no contrast. There is extensive metal artifact from previous surgery at the distal tibia and fibula. There is some narrowing of the ankle joint space. Achilles tendon is intact. Plantar fascia is intact. The collate ral ligaments appear intact. Medial and lateral flexor tendons appear intact. I see no focal bone destruction. Subtalar joint is i ntact. Talonavicular joint is intact. There is 10 mm area of decreased signal on the T1 images involv ing the anterior lateral articular surface of the distal tibia. This is consistent with bone bruise a nd degenerative phenomenon. 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 Small area of bone bruise and early degenerative cys t formation in the anterior lateral distal tibia. No fracture.
[2019-09-16 10:23] LABS: HLA B27 NEGATIVE
== END | disposition home or self-care (01) ==
LOC: RADMRIMAIN 14:48
PROVIDERS: ATTEND Orthopaedic Surgery
DX: M19.172 Post-traumatic osteoarthritis, left ankle and foot (principal)
CPT/HCPCS: 83520; 84443; 85027; 85652; 86038; 86060; 86140; 86431; 86618; 86812

== ENCOUNTER → 2022-03-08 | Outpatient (CLI) | payer OTHER ==
--- NOTE | 2022-03-08 10:08 | XR ---
EXAMINATION TYPE: XR lumbosacral spine min 4V DATE OF EXAM: 03/08/2022 9:59 AM INDICATION: Patient age:Male; 61 years old; Reason for study: M54.5 back pain; . COMPARISON: Spine 02/14/2017 TECHNIQUE: Frontal, lateral , bilateral oblique and coned in L5-S1 lateral views of the spine. FINDINGS: Multilevel mild osteophyte formation is present. No definitive evidence for significant jack ral foraminal stenosis. The spinal canal appears patent. Arthrosis the arterial vasculature. No evide nce for acute fracture. No evidence of loss of vertebral body height is seen. There is normal alignm ent of the lumbar vertebral bodies. IMPRESSION: 1. No acute process. 2. Mild multilevel disc degeneration changes.
== END | disposition home or self-care (01) ==
LOC: RADXRMAIN 09:40
PROVIDERS: ATTEND Family Medicine
DX: M51.26 Other intervertebral disc displacement, lumbar region (principal)
CPT/HCPCS: 72110

== ENCOUNTER 2022-04-11 10:05 | Day surgery (SDC) | payer OTHER ==
[2022-04-10 15:48] VITALS: BMI 24.3
[~2022-04-11 10:05] MED LIST changes: +LIDOCAINE 1% (10MG/ML) FOR IV START INTRADERMA PRN; -MORPHINE SULFATE 2 MG/ML SYRINGE IV PRN; -ceFAZolin IN SWFI 2 GM/20 ML SYRINGE IVP ONE
[2022-04-11 11:08] VITALS: RESP 16; TEMP 97.2
[2022-04-11] MEDS ORDERED: PROPOFOL 10 MG/ML 20 ML VIAL IV ONE (11:46)
[2022-04-11] MEDS ORDERED: LIDOCAINE 2% INJ 20 MG/ML (2 ML VIAL) ONE (11:46)
--- NOTE | 2022-04-11 12:06 | P.PCN ---
Date of Procedure: 04/11/22 Procedure(s) Performed: Brief history: Patient is a pleasant 61-year-old white male scheduled for an elective upper endoscopy as well as colonoscopy as a part of evaluation of GERD and screening for colorectal neoplasia Procedure performed: Esophagogastroduodenoscopy Colonoscopy Preoperative diagnosis: GERD Screening for colon cancer Anesthesia: MAC Procedure: After informed consent was obtained from the patient was brought into the endoscopy unit and IV sedation was administered by anesthesia under continuous monitoring. Initially upper endoscopy was done. The Olympus GF 160 video endoscope was inserted inserted into the mouth and esophagus intubated without any difficulty and was gradually advanced into the stomach and duodenum and carefully examined. The bulb and second part of the duodenum appeared normal. The scope was then withdrawn into the stomach adequately insufflated with air and upon careful examination the antrum and body, cardia and fundus appeared normal. The scope was then withdrawn into the esophagus. Moderate size hiatal hernia noted. The GE junction was located at 35 cm to the incisors. It appeared regular with mild erythema consistent with LA grade a reflux esophagitis. Rest of the esophagus appeared normal. Patient tolerated the procedure well. At this time the patient continued to remain sedation. Initial digital rectal examination revealed external hemorrhoids and some rectal prolapse.. Olympus CF 160 video colonoscope was then inserted into the rectum and gradually advanced to the cecum without any difficulty. Careful examination was performed as the scope was gradually being withdrawn. The prep was excellent. The cecum, ascending colon, transverse colon, descending colon, sigmoid colon and rectum appeared normal. Retroflexion was performed in the rectum and no lesions were noted. Patient tolerated the procedure well. Impression: 1. Upper endoscopy revealed moderate size hiatal hernia and mild reflux esophagitis 2. Colonoscopy was within normal limits with no evidence of colorectal neoplasia. Internal and external hemorrhoids seen with mild rectal prolapse Recommendations: Findings of this examination were discussed with the patient as well as his family. He was advised to follow antireflux measures. Recommend a repeat screening colonoscopy in 10 years.
[2022-04-11 12:30] VITALS: BP 110/79; PULSE 75
== END 2022-04-11 12:50 | disposition home or self-care (01) ==
LOC: ORWHC2ENDO 10:05
PROVIDERS: ATTEND Internal Medicine Gastroenterology
DX: Z12.11 Encounter for screening for malignant neoplasm of colon (principal); K21.00 Gastro-esophageal reflux disease with esophagitis, without bleeding; K44.9 Diaphragmatic hernia without obstruction or gangrene; K64.4 Residual hemorrhoidal skin tags; K62.3 Rectal prolapse
CPT/HCPCS: 43235; J2704; J2001; G0121; 45378

== ENCOUNTER → 2022-11-07 | Outpatient (CLI) | payer MEDICARE, OTHER ==
--- NOTE | 2022-11-07 12:23 | CT ---
EXAMINATION TYPE: CT forearm RT wo con CT DLP: 407 mGycm, Automated exposure control for dose reduction was used. DATE OF EXAM: 11/07/2022 11:38 AM COMPARISON: None CLINICAL INDICATION:Male, 62 years old with history of S51.851A OPEN BITE OF RIGHT FOREARM, INITIAL E NCOU; H, RT forearm dog bite, concern for fracture. BB noted on ulnar side. Stat hold and call TECHNIQUE: Axial images were obtained of the right forearm . Additional coronal and sagittal reforma tted images and soft tissue and bone window were obtained for review. 3-D reconstruction was created on a separate workstation. Contrast used: None Oral contrast used: None FINDINGS: No organizing fluid collection. No evidence of fracture. There is no evidence of fracture, subluxation, or dislocation. No focal muscular atrophy or edema is identified. No radiopaque foreign body identified. Mild soft tissue swelling near the metallic marker. Somewhat undulating contour to t he distal radius and ulna which could be due to patient motion. IMPRESSION: 1. No evidence of fracture or organizing fluid collection. 2. No radiopaque foreign body.
== END | disposition home or self-care (01) ==
LOC: RADCTMAIN 10:48
PROVIDERS: ATTEND Nurse Practitioner Adult Health
DX: S51.851A Open bite of right forearm, initial encounter (principal)

== ENCOUNTER 2023-04-14 09:01 | Inpatient (IN) | payer MEDICARE, OTHER ==
[2023-04-14 09:39] LABS: Basophils % (A) 1 %; Eosinophils # (A) 0.1 k/uL (0-0.7); Eosinophils % (A) 2 %; HCT 49.2 % (39.0-53.0); Lymphocytes # (A) 1.1 k/uL (1.0-4.8); Lymphocytes % (A) 15 %; MCH 31.2 pg (25.0-35.0); MCHC 32.6 g/dL (31.0-37.0); MCV 95.8 fL (80.0-100.0); Mean Platelet Volume 8.2; Monocytes # (A) 0.5 k/uL (0-1.0); Monocytes % (A) 7 %; Neutrophils # (A) 5.3 k/uL (1.3-7.7); Neutrophils % (A) 73 %; Platelet Count 181 k/uL (150-450); RBC 5.13 m/uL (4.30-5.90); WBC 7.2 k/uL (3.8-10.6)
--- NOTE | 2023-04-14 09:47 | ED ---
General Adult HPI - General Chief complaint: Chest Pain Stated complaint: Chest Pain Time Seen by Provider: 04/14/23 09:13 Source: patient Mode of arrival: ambulatory Limitations: no limitations - History of Present Illness Initial comments: Dictation was produced using [employer] dictation software. please excuse any grammatical, word or spelling errors. Chief Complaint: 62-year-old male presents to the emergency room for chest pain History of Present Illness: A 62-year-old male who has past medical history dyslipidemia. Patient denies any cardiac history. He does however explain that he has extensive family history of cardiac disease. Patient's twin brother has multiple stents. His older brother has a pacemaker/AICD. A subsequent follow- up and has cardiac history. Patient states that over the last month or so he's been having intermittent episodes of chest pain every down the right upper extremity. Patient saw his primary care doctor regarding this over is unable to get further workup for several days. Patient denies any symptoms at the bedside. He did have an episode just prior to arrival The ROS documented in this emergency department record has been reviewed and confirmed by me. Those systems with pertinent positive or negative responses have been documented in the HPI. All other systems are other negative and/or noncontributory. - Related Data Home Medications Medication Instructions Recorded Confirmed ARIPiprazole [Abilify] 5 mg PO HS 04/10/22 04/11/22 Desvenlafaxine Succinate [Pristiq 50 mg PO DAILY 04/10/22 04/11/22 ER] Diclofenac Sodium [Voltaren] 75 mg PO BID 04/10/22 04/11/22 Pregabalin [Lyrica] 75 mg PO BID 04/10/22 04/11/22 Simvastatin [Zocor] 20 mg PO HS 04/10/22 04/11/22 Allergies Allergy/AdvReac Type Severity Reaction Status Date / Time No Known Allergies Allergy Verified 04/14/23 09:09 Review of Systems ROS Statement: Those systems with pertinent positive or pertinent negative responses have been documented in the HPI. ROS Other: All systems not noted in ROS Statement are negative. Past Medical History Past Medical History: Hyperlipidemia, Osteoarthritis (OA) Additional Past Medical History / Comment(s): hemorrhoid, History of Any Multi-Drug Resistant Organisms: None Reported Past Surgical History: Hernia Repair, Orthopedic Surgery Additional Past Surgical History / Comment(s): INGUINAL HERNIA REPAIR, prostate biopsy, ORIF left ankle Past Anesthesia/Blood Transfusion Reactions: No Reported Reaction Additional Past Anesthesia/Blood Transfusion Reaction / Comment(s): . Past Psychological History: Anxiety Smoking Status: Current some day smoker Past Alcohol Use History: None Reported Past Drug Use History: Marijuana - Past Family History Sister(s) Family Medical History: Cancer Mother Family Medical History: Cancer Additional Family Medical History / Comment(s): COLON CANCER Brother(s) Family Medical History: Myocardial Infarction ([place]) Additional Family Medical History / Comment(s): TWIN BROTHER HAD [place] Father Family Medical History: Deep Vein Thrombosis (DVT) General Exam - General Exam Comments Initial Comments: PHYSICAL EXAM: General Impression: Alert and oriented x3, not in acute distress HEENT: Normocephalic atraumatic, extra-ocular movements intact, pupils equal and reactive to light bilaterally, mucous membranes moist. Cardiovascular: Heart regular rate and rhythm Chest: Able to complete full sentences, no retractions, no tachypnea Abdomen: abdomen soft, non-tender, non-distended, no organomegaly Musculoskeletal: Pulses present and equal in all extremities, no peripheral edema Motor: no focal deficits noted Neurological: CN II-XII grossly intact, no focal motor or sensory deficits noted Skin: Intact with no visualized rashes Psych: Normal affect and mood Limitations: no limitations Course Vital Signs 04/14/23 04/14/23 04/14/23 09:06 09:24 09:30 Temperature 97.5 F L Pulse Rate 65 70 Respiratory 18 16 20 Rate Blood Pressure 120/74 141/83 O2 Sat by Pulse 99 99 Oximetry 04/14/23 10:42 Temperature Pulse Rate 67 Respiratory 20 Rate Blood Pressure 132/98 O2 Sat by Pulse 98 Oximetry EKG Findings - EKG Comments: EKG Findings:: My EKG interpretation: Ventricular rate 65, sinus rhythm,. 135, QRS 90, QTC 398. No MS prolongation, no QTC prolongation, no ST or T-wave changes noted. . Overall, this EKG is unremarkable Medical Decision Making - Medical Decision Making Was pt. sent in by a medical professional or institution (, PA, WRAPPER SORTER, urgent care, hospital, or halfway...) When possible be specific @ -No Did you speak to anyone other than the patient for history (EMS, parent, family, police, friend...)? What history was obtained from this source @ -No Did you review nursing and triage notes (agree or disagree)? Why? @ -I reviewed and agree with nursing and triage notes Were old charts reviewed (outside hosp., previous admission, EMS record, old EKG, old radiological studies, urgent care reports/EKG's, halfway records)? Report findings @ -No old charts were reviewed Differential Diagnosis (chest pain, altered mental status, abdominal pain women, abdominal pain men, vaginal bleeding, musculoskeletal, weakness, fever, dyspnea, syncope, headache, dizziness, GI bleed, back pain, seizure, CVA, palpatations, mental health)? @ -Differential Chest Pain: Stable Angina, Unstable Angina, STEMI, NSTEMI Aortic Dissection, Pneumothorax, Musculoskeletal, Esophageal Spasm GERD, Cholecystitis, Pancreatitis, Zoster, this is not meant to be an all-inclusive list. EKG interpreted by me (3pts min.). @ -See above X-rays interpreted by me (1pt min.). @ -Chest x-ray is unremarkable CT interpreted by me (1pt min.). @ -None done U/S interpreted by me (1pt. min.). @ -None done What testing was considered but not performed or refused? (CT, X-rays, U/S, labs )? Why? @ -None What meds were considered but not given or refused? Why? @ -None Did you discuss the management of the patient with other professionals (professionals i.e. , PA, WRAPPER SORTER, lab, RT, psych nurse, social services coordinator, superintendent schools, teacher, assistant chief nursing officer, upper caser)? Give summary @ -discussed with hospitalist for admission Was smoking cessation discussed for >3mins.? @ -No Was critical care preformed (if so, how long)? @ -yes, 33 minutes Were there social determinants of health that impacted care today? How? (Homelessness, low income, unemployed, alcoholism, drug addiction, transportation, low edu. Level, literacy, decrease access to med. care, long-term, rehab)? @ -No Was there de-escalation of care discussed even if they declined (Discuss DNR or withdrawal of care, Hospice)? DNR status @ -No What co-morbidities impacted this encounter? (DM, HTN, Smoking, COPD, CAD, Cancer, CVA, ARF, Chemo, Hep., AIDS, mental health diagnosis, sleep apnea, morbid obesity)? @ -None Was patient admitted / discharged? Hospital course, mention meds given and route, prescriptions, significant lab abnormalities, going to OR and other pertinent info. @ -62-year-old male with extensive history of acute coronary syndrome presents to the ER for chest pain suspicious for ACS. Vital signs stable. EKG shows no signs of ischemia or infarction. Labs obtained. Troponin is 0.095. Patient given aspirin. Start on heparin. She'll be admitted consultation to cardiology. Clinical presentation consistent with NSTEMI. Patient reevaluated at bedside 1056 with no active symptoms. Undiagnosed new problem with uncertain prognosis? @ -No Drug Therapy requiring intensive monitoring for toxicity (Heparin, Nitro, Insulin, Cardizem)? @ -No Were any procedures done? @ -No Diagnosis/symptom? Acute, or Chronic, or Acute on Chronic? Uncomplicated (without systemic symptoms) or Complicated (systemic symptoms)? @ -NSTEMI Side effects of treatment? @ -No Exacerbation, Progression, or Severe Exacerbation? @ -No Poses a threat to life or bodily function? How? (Chest pain, [place], [place], pneumonia, PE, COPD, DKA, ARF, appy, cholecystitis, CVA, Diverticulitis, Homicidal, Suicidal, threat to staff... and all critical care pts) @ -yes - Lab Data Result diagrams: 04/14/23 09:30 04/14/23 09:30 Lab Results 04/14/23 04/14/23 04/14/23 Range/Units 09:30 09:30 09:30 WBC 7.2 (3.8-10.6) k/uL RBC 5.13 (4.30-5.90) m/uL Hgb 16.0 (13.0-17.5) gm/dL Hct 49.2 (39.0-53.0) % MCV 95.8 (80.0-100.0) fL MCH 31.2 (25.0-35.0) pg MCHC 32.6 (31.0-37.0) g/dL RDW 14.0 (11.5-15.5) % Plt Count 181 (150-450) k/uL MPV 8.2 Neutrophils % 73 % Lymphocytes % 15 % Monocytes % 7 % Eosinophils % 2 % Basophils % 1 % Neutrophils # 5.3 (1.3-7.7) k/uL Lymphocytes # 1.1 (1.0-4.8) k/uL Monocytes # 0.5 (0-1.0) k/uL Eosinophils # 0.1 (0-0.7) k/uL Basophils # 0.0 (0-0.2) k/uL PT 10.1 (9.0-12.0) sec INR 0.9 (<1.2) APTT 23.2 (22.0-30.0) sec Sodium 142 (137-145) mmol/L Potassium 4.1 (3.5-5.1) mmol/L Chloride 108 H (98-107) mmol/L Carbon Dioxide 26 (22-30) mmol/L Anion Gap 8 mmol/L BUN 20 (9-20) mg/dL Creatinine 1.11 (0.66-1.25) mg/dL Est GFR (CKD-EPI)AfAm 82 (>60 ml/min/1.73 sqM) Est GFR (CKD-EPI)NonAf 71 (>60 ml/min/1.73 sqM) Glucose 86 (74-99) mg/dL Calcium 9.4 (8.4-10.2) mg/dL Magnesium 2.1 (1.6-2.3) mg/dL Total Bilirubin 0.5 (0.2-1.3) mg/dL AST 43 (17-59) U/L ALT 32 (4-49) U/L Alkaline Phosphatase 58 (38-126) U/L Troponin I (0.000-0.034) ng/mL Total Protein 6.7 (6.3-8.2) g/dL Albumin 4.2 (3.5-5.0) g/dL 04/14/23 Range/Units 09:30 WBC (3.8-10.6) k/uL RBC (4.30-5.90) m/uL Hgb (13.0-17.5) gm/dL Hct (39.0-53.0) % MCV (80.0-100.0) fL MCH (25.0-35.0) pg MCHC (31.0-37.0) g/dL RDW (11.5-15.5) % Plt Count (150-450) k/uL MPV Neutrophils % % Lymphocytes % % Monocytes % % Eosinophils % % Basophils % % Neutrophils # (1.3-7.7) k/uL Lymphocytes # (1.0-4.8) k/uL Monocytes # (0-1.0) k/uL Eosinophils # (0-0.7) k/uL Basophils # (0-0.2) k/uL PT (9.0-12.0) sec INR (<1.2) APTT (22.0-30.0) sec Sodium (137-145) mmol/L Potassium (3.5-5.1) mmol/L Chloride (98-107) mmol/L Carbon Dioxide (22-30) mmol/L Anion Gap mmol/L BUN (9-20) mg/dL Creatinine (0.66-1.25) mg/dL Est GFR (CKD-EPI)AfAm (>60 ml/min/1.73 sqM) Est GFR (CKD-EPI)NonAf (>60 ml/min/1.73 sqM) Glucose (74-99) mg/dL Calcium (8.4-10.2) mg/dL Magnesium (1.6-2.3) mg/dL Total Bilirubin (0.2-1.3) mg/dL AST (17-59) U/L ALT (4-49) U/L Alkaline Phosphatase (38-126) U/L Troponin I 0.095 H* (0.000-0.034) ng/mL Total Protein (6.3-8.2) g/dL Albumin (3.5-5.0) g/dL Disposition Clinical Impression: NSTEMI (non-ST elevated myocardial infarction) Disposition: ADMITTED IP TO THIS [facility] Condition: Serious Referrals: Otto Joshi MD [Primary Care Provider] - 1-2 days Decision Time: 10:00
[2023-04-14 09:48] LABS: INR 0.9 (<1.2); Partial Thromboplastin Time 23.2 sec (22.0-30.0); Prothrombin Time 10.1 sec (9.0-12.0)
--- NOTE | 2023-04-14 09:50 | XR ---
EXAMINATION TYPE: XR chest 2V DATE OF EXAM: 04/14/2023 COMPARISON: 11/12/2018 HISTORY: Shortness of breath TECHNIQUE: Frontal and lateral views of the chest are obtained. FINDINGS: Scattered senescent parenchymal changes noted. Hyperinflation compatible with COPD. No evidence for infiltrate. No evidence for atelectasis. Heart size is stable. Mediastinal structures are stable and grossly unremarkable. No evidence for hilar prominence. Degenerative changes dorsal spine. IMPRESSION: 1. No evidence for acute pulmonary disease.
[2023-04-14 09:55] LABS: ALT 32 U/L (4-49); AST 43 U/L (17-59); African American GFR (CKD) 82 (>60 ml/min/1.73 sqM); Albumin 4.2 g/dL (3.5-5.0); Alkaline Phosphatase 58 U/L (38-126); Anion Gap 8 mmol/L; Blood Urea Nitrogen 20 mg/dL (9-20); Calcium 9.4 mg/dL (8.4-10.2); Carbon Dioxide 26 mmol/L (22-30); Chloride 108 mmol/L (98-107); Glucose 86 mg/dL (74-99); Magnesium 2.1 mg/dL (1.6-2.3); Non-African American GFR(CKD) 71 (>60 ml/min/1.73 sqM); Potassium 4.1 mmol/L (3.5-5.1); Sodium 142 mmol/L (137-145); Total Bilirubin 0.5 mg/dL (0.2-1.3); Total Protein 6.7 g/dL (6.3-8.2)
[2023-04-14] MEDS ORDERED: HEPARIN SODIUM 1,000 UN/ML (10ML VL) IV ONE (10:20)
[2023-04-14] MEDS ORDERED: HEPARIN SODIUM 1,000 UN/ML (10ML VL) IV PRN (10:20)
[2023-04-14] MEDS ORDERED: ASPIRIN 81 MG PO STA (10:21)
[2023-04-14] MEDS: HEPARIN SOD,PORK IN 0.45% NACL 25,000 UNIT in 0.45% NACL 1 250ML.BAG IV SCH (10:35)
[2023-04-14] MEDS ORDERED: NITROGLYCERIN SL TABS 0.4 MG TAB SUBLINGUAL PRN ×2 (10:50→15:49)
[2023-04-14] MEDS ORDERED: NALOXONE 0.4 MG/ML 1 ML VIAL IV PRN (11:46)
[2023-04-14] MEDS ORDERED: MELATONIN 3 MG TABLET PO PRN (11:46)
[2023-04-14] MEDS ORDERED: ONDANSETRON 4 MG/2 ML VIAL IVP PRN (11:46)
--- NOTE | 2023-04-14 14:01 | P.HPIM ---
History of Present Illness H&P Date: 04/14/23 62 year old M with PMH of PTSD, Dyslipidemia presents to the ED for chest pain. Patient reports chest pain that has been ongoing for the past 2 months. Pain can occur at any time and has even woke him up from sleep. Pain usually occurs 2-5 times a day. Not related to exertion or meals. Pain is described as left sided, throbbing, 10/10 in severity radiating to the neck and jaw. Pain is associated w ith dry heaving. Belching usually helps his time. He was scheduled for an outpatient stress on 04/25. His chest pain lasted all night and his was worried which prompted him to come to the ED. Patient reports a strong family history. His brother had an [place] in his 50s. His brother was also diagnosed with hypertrophic cardiomyopathy status post pacemaker and defibrillator. He does not smoke cigarettes or drink alcohol. He reports marijuana use. In the ED, his vital signs are stable. CBC was unremarkable. INR 0.9. CMP showed chloride 108. Magnesium 2.1. Troponin 0.095, 0.102 with EKG showing normal sinus rhythm. Chest x-ray negative for acute finding. Patient is admitted for chest pain, rule out acute coronary syndrome and cardiology consultation. General: non toxic, no distress, appears at stated age Derm: warm, dry Head: atraumatic, normocephalic, symmetric Eyes: EOMI, no lid lag, anicteric sclera Cardiovascular: S1S2 reg, no murmur Lungs: CTA bilateral, no rhonchi, no rales , no accessory muscle use Ext: no gross muscle atrophy, no edema, no contractures Neuro: no focal neuro deficits Psych: Alert, oriented, appropriate affect Non-ST elevation [place] PTSD Dyslipidemia Overweight Based on my assessment of this patient, this patient meets a high complexity level of care. Patient has an acute diagnosis of chest pain that poses a threat to life or bodily function. Her HEART score is 5. Non-ST elevation [place]: Troponins slowly uptrending. Given ASA 325 mg PO in the ED. Start Heparin drip. Cardiology consultation. Telemetry monitoring. PTSD: Pristiq 50 mg PO QD. Dyslipidemia: Simvastatin 20 mg PO QHS. Overweight: Encourage weight loss. Heparin drip for DVT prophylaxis. is decision maker. FULL CODE. I have reviewed the following management consultant notes: I have reviewed the results of the following tests: CBC, CMP, Coag panel, Trop x 2, CXR I have ordered the following tests: Echo. Lipid panel. I have discussed the care of this patient with the following independent historian: I have independently interpreted the following test below: EKG I have discussed the management of this patient with the following physician: Discussed with ED physician in detail. Past Medical History Past Medical History: Hyperlipidemia, Osteoarthritis (OA) Additional Past Medical History / Comment(s): hemorrhoid, History of Any Multi-Drug Resistant Organisms: None Reported Past Surgical History: Hernia Repair, Orthopedic Surgery Additional Past Surgical History / Comment(s): INGUINAL HERNIA REPAIR, prostate biopsy, ORIF left ankle Past Anesthesia/Blood Transfusion Reactions: No Reported Reaction Additional Past Anesthesia/Blood Transfusion Reaction / Comment(s): . Past Psychological History: Anxiety Smoking Status: Current some day smoker Past Alcohol Use History: None Reported Past Drug Use History: Marijuana - Past Family History Sister(s) Family Medical History: Cancer Mother Family Medical History: Cancer Additional Family Medical History / Comment(s): COLON CANCER Brother(s) Family Medical History: Myocardial Infarction ([place]) Additional Family Medical History / Comment(s): TWIN BROTHER HAD [place] Father Family Medical History: Deep Vein Thrombosis (DVT) Medications and Allergies Home Medications Medication Instructions Recorded Confirmed Type Desvenlafaxine Succinate [Pristiq 50 mg PO DAILY 04/10/22 04/14/23 History ER] Diclofenac Sodium [Voltaren] 75 mg PO BID 04/10/22 04/14/23 History Simvastatin [Zocor] 20 mg PO HS 04/10/22 04/14/23 History Albuterol Inhaler [Ventolin Hfa 1 - 2 puff INHALATION RT-Q6H PRN 04/14/23 04/14/23 History Inhaler] Aspirin EC [Ecotrin Low Dose] 81 mg PO Q48H 04/14/23 04/14/23 History Cholecalciferol [Vitamin D3 (25 50 mcg PO DAILY 04/14/23 04/14/23 History Mcg = 1000 Iu)] Fluticasone Propion/Salmeterol 1 puff INHALATION DIRECTED 04/14/23 04/14/23 History [Advair 250-50 Diskus] Multivitamins, Thera [Multivitamin 1 tab PO DAILY 04/14/23 04/14/23 History (formulary)] [place]-3/Dha/Epa/Fish Oil [Fish Oil 1 cap PO DAILY 04/14/23 04/14/23 History 1,000 mg Softgel] traZODone HCL [Desyrel] 50 mg PO HS 04/14/23 04/14/23 History Allergies Allergy/AdvReac Type Severity Reaction Status Date / Time No Known Allergies Allergy Verified 04/14/23 12:35 Physical Exam Vitals: Vital Signs Temp Pulse Resp BP Pulse Ox 04/14/23 12:00 60 20 154/98 99 04/14/23 11:00 60 16 140/90 98 04/14/23 10:42 67 20 132/98 98 04/14/23 09:30 20 04/14/23 09:24 70 16 141/83 99 04/14/23 09:06 97.5 F L 65 18 120/74 99 Intake and Output 04/13/23 04/14/23 04/14/23 22:59 06:59 14:59 Other: Weight 72.575 kg Results CBC & Chem 7: 04/14/23 09:30 04/14/23 09:30 Labs: Abnormal Lab Results - Last 24 Hours (Table) 04/14/23 04/14/23 04/14/23 Range/Units 09:30 09:30 11:43 Chloride 108 H (98-107) mmol/L Troponin I 0.095 H* 0.102 H* (0.000-0.034) ng/mL
[2023-04-14] MEDS ORDERED: ALPRAZolam 0.25 MG TAB PO PRN (15:49)
[2023-04-14] MEDS ORDERED: ALPRAZolam 0.5 MG TAB PO PRN (15:49)
--- NOTE | 2023-04-14 15:49 | P.CRDCN ---
History of Present Illness Consult date: 04/14/23 History of present illness: HISTORY OF PRESENTING ILLNESS Patient is a 61-year-old male with past medical history of PTSD, dyslipidemia who presented to the ER with substernal chest pain. Patient reported that for last 1-2 months he has been experiencing substernal chest pain which radiates to his back and neck. He describes the sensation as squeezing as someone is pressing his neck. His symptoms starts without any relationship with activity. He has been having symptoms of substernal chest pain and neck pressure which is waking up him from the night's sleep. Before this he was physically active without any limitations. He has not had any syncopal episodes lightheadedness or dizziness. He denies any palpitations. Patient reports that he has a family history of hypertrophic cardiomyopathy with requirement for AICD. His current brother recently got an AICD of HCM. His father had premature coronary artery disease. Patient denies any smoking. He does smoke marijuana on a regular basis. He denies any heavy alcohol use On admission he had elevation of troponin of 0.09, 0.1. His ECG shows normal sinus rhythm with no significant ST-T wave changes. His ECG shows normal axis with no concerns of LVH. DIAGNOSTICS Chest xray no acute cardiac pulmonary process. REVIEW OF SYSTEMS 14 point review of system is negative except what is mentioned above in HPI. PHYSICAL EXAMINATION Vital signs reviewed. Head: Normocephalic. Eyes: Sclerae nonicteric. Neck: Brisk carotid upstroke, no jugular venous distention. Lungs: Clear to auscultation. Heart: Regular rate and rhythm, S1-S2, no S3, no murmur or rub. Abdomen: Soft nontender, positive bowel sounds no organomegaly. Extremities: No edema, intact distal pulses. ASSESSMENT NSTEMI Substernal chest pressure, with crescendo pattern Family history of HCM with AICD requirement Dyslipidemia PTSD PLAN Continue IV heparin drip Continue aspirin 81 mg, atorvastatin 40 mg daily Plan for cardiac catheterization tomorrow. Nothing by mouth after midnight Obtain an echo cardiogram Not starting beta diego due to low resting heart rate in 60s Past Medical History Past Medical History: Hyperlipidemia, Osteoarthritis (OA) Additional Past Medical History / Comment(s): hemorrhoid, History of Any Multi-Drug Resistant Organisms: None Reported Past Surgical History: Hernia Repair, Orthopedic Surgery Additional Past Surgical History / Comment(s): INGUINAL HERNIA REPAIR, prostate biopsy, ORIF left ankle Past Anesthesia/Blood Transfusion Reactions: No Reported Reaction Additional Past Anesthesia/Blood Transfusion Reaction / Comment(s): . Past Psychological History: Anxiety Smoking Status: Current some day smoker Past Alcohol Use History: None Reported Past Drug Use History: Marijuana - Past Family History Sister(s) Family Medical History: Cancer Mother Family Medical History: Cancer Additional Family Medical History / Comment(s): COLON CANCER Brother(s) Family Medical History: Myocardial Infarction ([place]) Additional Family Medical History / Comment(s): TWIN BROTHER HAD [place] Father Family Medical History: Deep Vein Thrombosis (DVT) Medications and Allergies Home Medications Medication Instructions Recorded Confirmed Type Desvenlafaxine Succinate [Pristiq 50 mg PO DAILY 04/10/22 04/14/23 History ER] Diclofenac Sodium [Voltaren] 75 mg PO BID 04/10/22 04/14/23 History Simvastatin [Zocor] 20 mg PO HS 04/10/22 04/14/23 History Albuterol Inhaler [Ventolin Hfa 1 - 2 puff INHALATION RT-Q6H PRN 04/14/23 04/14/23 History Inhaler] Aspirin EC [Ecotrin Low Dose] 81 mg PO Q48H 04/14/23 04/14/23 History Cholecalciferol [Vitamin D3 (25 50 mcg PO DAILY 04/14/23 04/14/23 History Mcg = 1000 Iu)] Fluticasone Propion/Salmeterol 1 puff INHALATION DIRECTED 04/14/23 04/14/23 History [Advair 250-50 Diskus] Multivitamins, Thera [Multivitamin 1 tab PO DAILY 04/14/23 04/14/23 History (formulary)] [place]-3/Dha/Epa/Fish Oil [Fish Oil 1 cap PO DAILY 04/14/23 04/14/23 History 1,000 mg Softgel] traZODone HCL [Desyrel] 50 mg PO HS 04/14/23 04/14/23 History Allergies Allergy/AdvReac Type Severity Reaction Status Date / Time No Known Allergies Allergy Verified 04/14/23 12:35 Physical Exam Vitals: Vital Signs Temp Pulse Resp BP Pulse Ox 04/14/23 15:40 65 16 145/89 98 04/14/23 12:00 60 20 154/98 99 04/14/23 11:00 60 16 140/90 98 04/14/23 10:42 67 20 132/98 98 04/14/23 09:30 20 04/14/23 09:24 70 16 141/83 99 04/14/23 09:06 97.5 F L 65 18 120/74 99 Intake and Output 04/14/23 04/14/23 04/14/23 06:59 14:59 22:59 Other: Weight 72.575 kg Results 04/14/23 09:30 04/14/23 09:30 Cardiac Enzymes 04/14/23 04/14/23 04/14/23 Range/Units 09:30 09:30 11:43 AST 43 (17-59) U/L Troponin I 0.095 H* 0.102 H* (0.000-0.034) ng/mL Coagulation 04/14/23 Range/Units 09:30 PT 10.1 (9.0-12.0) sec APTT 23.2 (22.0-30.0) sec CBC 04/14/23 Range/Units 09:30 WBC 7.2 (3.8-10.6) k/uL RBC 5.13 (4.30-5.90) m/uL Hgb 16.0 (13.0-17.5) gm/dL Hct 49.2 (39.0-53.0) % Plt Count 181 (150-450) k/uL Comprehensive Metabolic Panel 04/14/23 Range/Units 09:30 Sodium 142 (137-145) mmol/L Potassium 4.1 (3.5-5.1) mmol/L Chloride 108 H (98-107) mmol/L Carbon Dioxide 26 (22-30) mmol/L BUN 20 (9-20) mg/dL Creatinine 1.11 (0.66-1.25) mg/dL Glucose 86 (74-99) mg/dL Calcium 9.4 (8.4-10.2) mg/dL AST 43 (17-59) U/L ALT 32 (4-49) U/L Alkaline Phosphatase 58 (38-126) U/L Total Protein 6.7 (6.3-8.2) g/dL Albumin 4.2 (3.5-5.0) g/dL Current Medications Generic Name Dose Route Start Last Admin Trade Name Freq PRN Reason Stop Dose Admin Acetaminophen 650 mg 04/14/23 11:46 Acetaminophen Tab 325 Mg Tab PO Q6HR PRN Mild Pain or Fever > 100.5 Aspirin 325 mg 04/15/23 09:00 Aspirin 325 Mg Tab PO DAILY [facility] Atorvastatin Calcium 10 mg 04/14/23 21:00 Atorvastatin 10 Mg Tab PO HS [facility] Desvenlafaxine Succinate 50 mg 04/15/23 09:00 Desvenlafaxine Succinate 50 Mg Tab.Er.24h PO DAILY [facility] Heparin Sodium (Porcine) 0 unit 04/14/23 10:20 Heparin Sodium 1,000 Un/Ml (10ml Vl) IV PER PROTOCOL PRN Low PTT Protocol Heparin Sodium/Sodium Chloride 250 mls @ 8.709 mls/hr 04/14/23 10:30 04/14/23 10:35 25,000 unit/ Sodium Chloride IV 12 units/kg/hr .Q24H DAJUAN 8.709 mls/hr Administration Protocol 12 UNITS/KG/HR Melatonin 3 mg 04/14/23 11:46 Melatonin 3 Mg Tablet PO HS PRN Insomnia Naloxone HCl 0.2 mg 04/14/23 11:46 Naloxone 0.4 Mg/Ml 1 Ml Vial IV Q2M PRN Opioid Reversal Nitroglycerin 0.4 mg 04/14/23 10:50 Nitroglycerin Sl Tabs 0.4 Mg Tab SUBLINGUAL Q5M PRN Chest Pain Ondansetron HCl 4 mg 04/14/23 11:46 Ondansetron 4 Mg/2 Ml Vial IVP Q8HR PRN Nausea And Vomiting Trazodone HCl 50 mg 04/14/23 21:00 Trazodone Hcl 50 Mg Tab PO HS [facility] Intake and Output 04/14/23 04/14/23 04/14/23 06:59 14:59 22:59 Other: Weight 72.575 kg Patient Weight 04/15/23 06:59 Weight 72.575 kg 04/14/23 09:30 04/14/23 09:30
[2023-04-14] MEDS: SODIUM CHLORIDE 0.9% 1,000 ML in EMPTY BAG 1 BAG IV SCH (16:07)
[2023-04-14] MEDS: ATORVASTATIN 40 MG TAB PO SCH (20:03)
[2023-04-14] MEDS: traZODone HCL 50 MG TAB PO SCH (20:03)
[2023-04-14] MEDS ORDERED: ATORVASTATIN 10 MG TAB PO SCH (21:00)
[2023-04-14] MEDS: ACETAMINOPHEN TAB 325 MG TAB PO PRN (23:25)
[2023-04-15] MEDS: SODIUM CHLORIDE 0.9% 1,000 ML in EMPTY BAG 1 BAG IV SCH ×11 (04:46→16:19)
[2023-04-15 04:57] LABS: Glucose,Whole Blood 96 mg/dL (70-110)
[2023-04-15] MEDS: ASPIRIN 81 MG PO SCH (06:47)
[2023-04-15] MEDS: DESVENLAFAXINE SUCCINATE 50 MG TAB.ER.24H PO SCH (06:47)
[2023-04-15] MEDS ORDERED: HEPARIN SODIUM,PORCINE 10,000 UNIT in SODIUM CHLORIDE 0.9% 1,000 ML IRRIGATION PRN (07:00)
[2023-04-15] MEDS ORDERED: HEPARIN SODIUM,PORCINE (1 ML) 2,500 UNIT in SODIUM CHLORIDE 0.9% 250 ML IRRIGATION PRN (07:00)
[2023-04-15] MEDS ORDERED: ASPIRIN 81 MG PO ONE (07:51)
[2023-04-15] MEDS ORDERED: IV FLUID CONTINUATION 1,000 ML IV ONE (07:52)
[2023-04-15] MEDS ORDERED: MIDAZOLAM 2 MG/2 ML VIAL IVP ONE ×2 (07:58)
[2023-04-15] MEDS ORDERED: fentaNYL (PF) 50 MCG/1 ML VIAL IVP ONE (07:58)
[2023-04-15] MEDS ORDERED: LIDOCAINE 1% INJ 10MG/ML (30 ML VIAL-PF) SQ ONE (08:02)
[2023-04-15] MEDS ORDERED: VERAPAMIL SYRINGE (5 MG/10 ML) INTRAARTER ONE ×2 (08:11→08:21)
[2023-04-15] MEDS: HEPARIN SODIUM 1,000 UN/ML (10ML VL) IV ONE ×4 (08:16→09:07)
[2023-04-15] MEDS ORDERED: PRASUGREL 10 MG TAB PO ONE (08:47)
--- NOTE | 2023-04-15 08:52 | P.CARDCATH ---
Date of Procedure: 04/15/23 Description of Procedure: DIAGNOSTIC CORONARY ANGIOGRAPHY and LEFT HEART CATH REPORT PROCEDURES PERFORMED: Left heart catheterization Selective coronary angiography Moderate conscious sedation 28 mins Right radial access INDICATION: NSTEMI Patient is a 62-year-old who presented to the hospital with substernal chest pain and neck pressure for last 1-2 weeks with crescendo pattern. For last 1 week he's been having resting pain on and off for 10-15 minutes. On admission he had troponin elevation with no significant ST changes on ECG. CONSENT: I have discussed the risks, benefits and alternative therapies for the above-mentioned procedure, sedation/analgesia and necessary blood product administration (if indicated, as they pertain to this patient). The patient has indicated understanding and acceptance of the risks and procedures discussed. Conscious Sedation: Patient's ECG, heart rate, blood pressure, pulse oximetry was monitored throughout the duration of procedure under the direct supervision. 2 mg Versed and [50] mg Fentanyl were used for induction of moderate conscious sedation. Total duration of 28 minutes. PROCEDURE:After the risks, benefits and alternatives of the above mentioned procedure explained in detail with the patient, informed consent was obtained. Patient was taken to the catheterization lab and prepped and draped in usual sterile fashion. 1% lidocaine was infiltrated over the right radial artery. A 6-Amharic sheath was placed in the right radial artery using modified Seldinger technique. The sheath was flushed 5 mg verapamil was administered intra- arterially. A Glidewire was used to cross elbow J tipped wire was advanced under fluoroscopic guidance. Once the wire tip reached aortic root 3000 units of IV heparin was given. Over the wire JL3.5 diagnostic catheter was advanced. Wire was removed, catheter was flushed and manipulated under fluoroscopy to selectively engaged the left coronary ostium. Left coronary angioplasty was performed in different angiographic projections. This catheter was exchanged for a JR4 diagnostic catheter over the wire. The catheter was flushed and manipulated to cross the aortic valve. LV pressures were obtained. Pullback was performed across aortic valve and catheter was manipulated to selectively engage the right coronary ostium under fluoroscopic guidance. Right coronary angiography was performed in different angiographic projections. Catheter was removed over the wire. Radial sheath was flushed. The right radial sheath was removed and a TR band was placed with excellent patent hemostasis was achieved. The patient tolerated the procedure well. Patient was transported back to the post catheterization holding area in stable condition. Angiographic images were reviewed in detail. HEMODYNAMICS: Aortic Pressure: 123/77 mmHg. LV pressure: 125/6 mmHg. LVEDP 22 mmHg. No gradients on careful pullback and LVOT No gradients across the aortic valve SELECTIVE CORONARY ARTERIOGRAPHY: LEFT MAIN: The left main is a large caliber vessel and very short which bifurcates into the LAD and circumflex. It appears angina after normal LEFT ANTERIOR DESCENDING CORONARY ARTERY: LAD is a large caliber vessel which wraps around to the apex. Proximal LAD has mild luminal irregularities. Mid LAD has mild luminal irregularities, distal LAD has 30-40% luminal irregularities. It gives a large diagonal 1 branch which has 20% luminal irregularities. LEFT CIRCUMFLEX CORONARY ARTERY: It is nondominant vessel. Left circumflex is a moderate caliber vessel. Ostial LCx has 40-50% stenosis. Proximal LCx has 2030% luminal irregularities. It gives a large OM1 branch measuring approximately 3 mm. Mid OM1 has 99% 20 mm segment of stenosis. It has KOLE 3 flow RIGHT CORONARY ARTERY: Dominant vessel. The right coronary artery is a large caliber vessel which gives off a PDA and PLV branch. It has ended 20% mild luminal irregularities IMPRESSION: 99% stenosis in mid OM1 with KOLE-3 flow Moderate nonobstructive ostial LCx disease. Mild disease in LAD and RCA Mildly elevated LVEDP No gradients on careful pullback and LVOT Family history of HOCM with AICD PLAN: Case discussed with director educational radio. Plan for cardiac intervention by Dr. Eng. Further recommendations to follow. Okay to discharge tomorrow Follow up in clinic in next 1-[address] Light Performing Physician Robbie Light MD
[2023-04-15] MEDS ORDERED: ASPIRIN 325 MG TAB PO SCH (09:00)
[2023-04-15] MEDS: NITROGLYCERIN 1000MCG/10ML SYRINGE INTRAARTER ONE ×2 (09:03→09:08)
[2023-04-15] MEDS ORDERED: IOPAMIDOL-370 100ML BTL INJ ONE ×2 (09:09→09:33)
[2023-04-15] MEDS ORDERED: ATROPINE SULFATE 0.1 MG/ML 10ML SYRINGE IV PRN (09:18)
[2023-04-15] MEDS ORDERED: MAG HYDROX/AL HYDROX/SIMETH 30 ML CUP PO PRN (09:18)
[2023-04-15] MEDS ORDERED: ZOLPIDEM 5 MG TAB PO PRN (09:18)
[2023-04-15] MEDS ORDERED: RX INFO: IV CONTRAST WAS GIVEN 1 EACH MISC MISCELLANE PRN (09:18)
--- NOTE | 2023-04-15 09:18 | P.PRCINT ---
Percutaneous Coronary Int. - Percutaneous Coronary Intervention Percutaneous Coronary Intervention: PROCEDURES PERFORMED: Left coronary angiography, PCI mid OM1 with a 3.25 x 15mm Xience CORTNEY INDICATION: Non-STEMI CONSENT:I have discussed the risks, benefits and alternative therapies for the above-mentioned procedure and for both sedation/analgesia as well as necessary blood product administration, if indicated, as they pertain to this patient. The patient has indicated understanding and acceptance of the risks and procedures discussed. PROCEDURE: After the risks, benefits and alternatives of the above mentioned procedure explained in detail with the patient, informed consent was obtained. Patient was taken to the catheterization lab and prepped and draped in usual fashion. A 6-Slovenian sheath had already been placed in the right radial artery. The decision was made to perform PCI of the OM1 branch. A 6-Slovenian CLS 3.0 guide was used to engage the left main. A 0.014 BMW wire was advanced in the distal OM1 branch. Predilation was performed with a 2.5 x 8 mm balloon. Next a 3.25 x 15 mm Xience CORTNEY was placed in the mid OM1. Final angiograms were performed. Preintervention there was 99% stenosis low. Postintervention there was 0% stenosis with KOLE 3 flow. The right radial sheath was removed and a TR band was placed with hemostasis achieved. The patient tolerated the procedure well. Patient was transported back to the post catheterization holding area in stable condition. Conscious Sedation: Patient was monitored under the direct supervision of myself for conscious sedation using Versed and fentanyl for a total duration of 29 minutes HEMODYNAMICS: Aortic: 127/72 SELECTIVE CORONARY ARTERIOGRAPHY: LEFT MAIN: The left main is a large caliber vessel which bifurcates into the LAD and circumflex. There is no significant stenosis. LEFT ANTERIOR DESCENDING CORONARY ARTERY: LAD is a large caliber vessel which wraps around to the apex. There are mild luminal irregularities. LEFT CIRCUMFLEX CORONARY ARTERY: Left circumflex is a moderate to large caliber vessel with a moderate caliber OM 1 branch with a mid OM1 99% stenosis. RIGHT CORONARY ARTERY: The right coronary artery was not imaged, see separate diagnostic report. FINAL IMPRESSION: 1. CAD as described above including 99% OM1 stenosis. 2. Status post PCI mid OM1 with a 3.25 x 15mm Xience CORTNEY PLAN: 1. Aggressive risk factor modification per most recent ACC/AHA guidelines. 2. Continue dual antiplatelets with aspirin and Effient for 12 months.
[2023-04-15] MEDS: ACETAMINOPHEN TAB 325 MG TAB PO PRN ×2 (12:37→20:02)
[2023-04-15 13:28] VITALS: BMI 25.1
--- NOTE | 2023-04-15 13:56 | P.PN ---
Subjective Progress Note Date: 04/15/23 62 year old M with PMH of PTSD, Dyslipidemia presents to the ED for chest pain. Patient reports chest pain that has been ongoing for the past 2 months. Pain can occur at any time and has even woke him up from sleep. Pain usually occurs 2-5 times a day. Not related to exertion or meals. Pain is described as left sided, throbbing, 10/10 in severity radiating to the neck and jaw. Pain is associated with dry heaving. Belching usually helps his time. He was scheduled for an outpatient stress on 04/25. His chest pain lasted all night and his was worried which prompted him to come to the ED. Patient reports a strong family history. His brother had an RI in his 50s. His brother was also diagnosed with hypertrophic cardiomyopathy status post pacemaker and defibrillator. He does not smoke cigarettes or drink alcohol. He reports marijuana use. In the ED, his vital signs are stable. CBC was unremarkable. INR 0.9. CMP showed chloride 108. Magnesium 2.1. Troponin 0.095, 0.102 with EKG showing normal sinus rhythm. Chest x-ray negative for acute finding. Patient is admitted for chest pain, rule out acute coronary syndrome and cardiology consultation. 04/15 Patient was seen and examined. No acute events overnight. Troponins uptrending to 0.151. He was started on a heparin drip. Cardiology was consulted and recommended cardiac cath. Cath showed 30-40% distal LAD, 20% diagonal 1 branch, ostial LCx 40-50%, proximal LCx 20-30%, OM 1 99% occlusion. Patient underwent PCI mid OM1 with a 3.25 x 15mm Xience CORTNEY. He reports no chest pain after his procedure. He is continued on ASA 81 mg PO QD, Effient 10 mg PO QD, Lipitor 40 mg PO QHS, Metoprolol 12.5 mg PO QD. Echocardiogram is pending. General: non toxic, no distress, appears at stated age Derm: warm, dry Head: atraumatic, normocephalic, symmetric Eyes: EOMI, no lid lag, anicteric sclera Cardiovascular: S1S2 reg, no murmur Lungs: CTA bilateral, no rhonchi, no rales , no accessory muscle use Ext: no gross muscle atrophy, no edema, no contractures Neuro: no focal neuro deficits Psych: Alert, oriented, appropriate affect Non-ST elevation RI PTSD Dyslipidemia Overweight Based on my assessment of this patient, this patient meets a moderate complexity level of care. Patient has an acute diagnosis of chest pain that poses a threat to life or bodily function. His HEART score is 5. Non-ST elevation RI: Status post PCI mid OM1 with a 3.25 x 15mm Xience CORTNEY. ASA 81 mg PO QD, Effient 10 mg PO QD, Lipitor 40 mg PO QHS, Metoprolol 12.5 mg PO QD. Echocardiogram is pending. Telemetry monitoring. Cardiology on board. PTSD: Pristiq 50 mg PO QD. Dyslipidemia: Simvastatin 20 mg PO QHS. Overweight: Encourage weight loss. Heparin SQ for DVT prophylaxis. is decision maker. FULL CODE. I have reviewed the following wardrobe image consultant notes: Cath note. PCI note. I have reviewed the results of the following tests: Trop I have ordered the following tests: Echo. Lipid panel. I have discussed the care of this patient with the following independent historian: I have independently interpreted the following test below: I have discussed the management of this patient with the following physician: Objective - Vital Signs Vital signs: Vital Signs Temp 98.6 F 04/15/23 10:00 Pulse 71 04/15/23 11:51 Resp 17 04/15/23 11:51 BP 127/73 04/15/23 11:51 Pulse Ox 99 04/15/23 11:51 FiO2 Intake & Output 04/14/23 04/15/23 04/15/23 18:59 06:59 18:59 Intake Total 294.141 81.645 980 Balance 294.141 81.645 980 Weight 72.575 kg 72.7 kg 72.7 kg Intake: IV 500 Intake, IV Titration 54.141 81.645 Amount Heparin Sod,Pork in 0.45% 54.141 81.645 NaCl 25,000 unit In 0.45 % NaCl 1 250ml.bag @ 12 UNITS/KG/HR 8.709 mls/hr IV .Q24H [facility] Rx#: [id number] Oral 240 480 Other: Voiding Method Toilet Bedpan # Voids 1 1 1 - Labs CBC & Chem 7: 04/14/23 09:30 04/14/23 09:30 Labs: Abnormal Lab Results - Last 24 Hours (Table) 04/14/23 04/14/23 04/15/23 Range/Units 14:20 15:45 07:03 APTT 33.8 H 74.2 H (22.0-30.0) sec Troponin I 0.151 H* (0.000-0.034) ng/mL
[2023-04-15] MEDS: HEPARIN SOD,PORK IN 0.45% NACL 25,000 UNIT in 0.45% NACL 1 250ML.BAG IV SCH (14:49)
--- NOTE | 2023-04-15 14:56 | CA ---
Transthoracic Echo Report Name: Alfredo Mckeon Age: 62 Gender: M : 1960 Exam Date: 04/15/2023 11:28 Exam Location: [place] [facility] Ht (in): 67 Wt (lb): 160 Ordering Physician: Jose Johnson MD Attending/Referring Phys: Spray Dyer Sri Dutton RDCS Procedure CPT: Indications: trop Cardiac Hx: Technical Quality: Fair Contrast 1: Total Dose (mL): Contrast 2: Total Dose (mL): MEASUREMENTS (Male / Female) Normal Values 2D ECHO LV Diastolic Diameter PLAX 3.6 cm 4.2 - 5.9 / 3.9 - 5.3 cm LV Systolic Diameter PLAX 2.5 cm IVS Diastolic Thickness 1.1 cm 0.6 - 1.0 / 0.6 - 0.9 cm LVPW Diastolic Thickness 1.5 cm 0.6 - 1.0 / 0.6 - 0.9 cm LV Relative Wall Thickness 0.7 RV Internal Dim ED PLAX 3.7 cm LA Volume 78.7 cm??? 18 - 58 / 22 - 52 cm??? M-MODE Aortic Root Diameter MM 2.6 cm LA Systolic Diameter MM 4.9 cm LA Ao Ratio MM 1.9 AV Cusp Separation MM 1.3 cm DOPPLER AV Peak Velocity 136.1 cm/s AV Peak Gradient 7.4 mmHg AV Mean Velocity 92.8 cm/s AV Mean Gradient 3.9 mmHg AV Velocity Time Integral 25.1 cm LVOT Peak Velocity 136.0 cm/s LVOT Peak Gradient 7.4 mmHg LVOT Velocity Time Integral 25.3 cm MV Area PHT 3.9 cm??? Mitral E Point Velocity 92.8 cm/s Mitral A Point Velocity 62.8 cm/s Mitral E to A Ratio 1.5 MV Deceleration Time 193.4 ms MV E' Velocity 8.8 cm/s Mitral E to MV E' Ratio 10.6 TR Peak Velocity 191.3 cm/s TR Peak Gradient 14.6 mmHg Right Ventricular Systolic Press 19.6 mmHg FINDINGS Left Ventricle Mildly increased left ventricular wall thickness. Left ventricular cavity size normal. Normal left ventricular systolic function with no obvious regional wall motion abnormalities. Left ventricular ejection fraction is estimated at 55-60 %. Right Ventricle Mild right ventricular dilatation. Right ventricular systolic pressure within normal limits. Right Atrium Normal right atrial size. Left Atrium Moderately increased left atrial volume. Mildly increased left atrial area. Mitral Valve Structurally normal mitral valve. No mitral stenosis. Mild mitral regurgitation. Aortic Valve Trileaflet aortic valve. No aortic valve stenosis or regurgitation. Tricuspid Valve Structurally normal tricuspid valve. Mild tricuspid regurgitation. Pulmonic Valve Structurally normal pulmonic valve. Trace pulmonic regurgitation. Pericardium No pericardial effusion. Aorta Normal size aortic root and proximal ascending aorta. CONCLUSIONS Mildly increased left ventricular wall thickness Left ventricular ejection fraction 55-60% Mildly dilated left atrium Mild mitral regurgitation Mild tricuspid regurgitation RVSP 20 Previewed by: Dr. Corey Eng DO (Electronically Signed) Final Date: 15 April 2023 14:55
[2023-04-15 15:48] LABS: Chol/HDL Ratio 2.91 Ratio; LDL Cholesterol,Calculated 77.8 mg/dL (0.0-131.0); VLDL Calculation 12.18 mg/dL (5.00-40.00)
[2023-04-15] MEDS: HEPARIN SODIUM,PORCINE 5,000 UNIT/ML 1 ML VIAL SQ SCH ×2 (15:59→23:26)
[2023-04-15] MEDS ORDERED: HEPARIN SODIUM,PORCINE 5,000 UNIT/ML 1 ML VIAL SQ SCH (16:00)
[2023-04-15] MEDS: traZODone HCL 50 MG TAB PO SCH (20:02)
[2023-04-15] MEDS: ATORVASTATIN 40 MG TAB PO SCH (20:02)
[2023-04-16 07:55] VITALS: BP 135/85; PULSE 84; RESP 16; TEMP 98.3
[2023-04-16] MEDS: HEPARIN SODIUM,PORCINE 5,000 UNIT/ML 1 ML VIAL SQ SCH (08:08)
[2023-04-16] MEDS: DESVENLAFAXINE SUCCINATE 50 MG TAB.ER.24H PO SCH (08:09)
[2023-04-16] MEDS: ASPIRIN 81 MG PO SCH (08:09)
[2023-04-16] MEDS ORDERED: PRASUGREL 10 MG TAB PO SCH (09:00)
[2023-04-16] MEDS ORDERED: METOPROLOL SUCCINATE (ER) 25 MG TAB.ER.24H PO SCH (09:00)
[2023-04-16 10:11] LABS: African American GFR (CKD) >90 (>60 ml/min/1.73 sqM); Non-African American GFR(CKD) 87 (>60 ml/min/1.73 sqM)
--- NOTE | 2023-04-16 11:17 | P.PN ---
Subjective HISTORY OF PRESENT ILLNESS: Patient is status post cardiac catheterization with PCI of the mid OM1. Patient examined this morning at the bedside. Patient denies chest pain or pressure. He denies shortness of breath. Patient has been ambulating in the hallway this morning and is anxious to be discharged home today. PHYSICAL EXAM: VITAL SIGNS: Reviewed. GENERAL: Well-developed in no acute distress. NECK: Supple. No JVD or thyromegaly LUNGS: Respirations even and unlabored. Lungs essentially clear to auscultation bilaterally. HEART: Regular rate and rhythm. S1 and S2 heard. EXTREMITIES: Normal range of motion. No clubbing or cyanosis. Peripheral pulses intact. No lower extremity edema ASSESSMENT: Non-STEMI, status post cardiac catheterization with stenting of OM1 Hyperlipidemia History of PTSD Marijuana use PLAN: Continue to antiplatelet therapy with aspirin and Effient Continue high intensity statin Continue additional cardiac medications Patient may be discharged home today from a cardiac standpoint Nurse practitioner note has been reviewed by physician. Signing provider agrees with the documented findings, assessment, and plan of care. Objective - Vital Signs Vital signs: Vital Signs Temp 98.3 F 04/16/23 07:53 Pulse 84 04/16/23 07:53 Resp 16 04/16/23 07:53 BP 135/85 04/16/23 07:53 Pulse Ox 97 04/16/23 07:53 FiO2 Intake & Output 04/15/23 04/16/23 04/16/23 18:59 06:59 18:59 Intake Total 1298 540 Balance 1298 540 Weight 72.7 kg Intake: IV 500 Oral 798 540 Other: Voiding Method Toilet Toilet Toilet Bedpan Bedpan Urinal # Voids 2 1 2 - Labs CBC & Chem 7: 04/14/23 09:30 04/16/23 08:34
--- NOTE | 2023-04-16 12:31 | P.DS ---
Providers Date of admission: 04/14/23 10:50 Expected date of discharge: 04/16/23 Attending physician: Jose Johnson MD Consults: 04/14/23 10:50 Consult Physician Urgent Consulting Provider: Robbie Light Consult Reason/Comments: nstemi Do you want consulting provider notified?: Yes 04/15/23 09:18 Consult Physician Routine Consulting Provider: [facility] Consult Reason/Comments: Post Interventional Patient Do you want consulting provider notified?: Already Contacted Primary care physician: Otto Sotelo [facility] Course: NSTEMI PTSD HLD Overweight Hospital Course: 62 year old M with PMH of PTSD, Dyslipidemia presented to the ED for chest pain. Patient reports chest pain that has been ongoing for the past 2 months. In the ED, his vital signs are stable. CBC was unremarkable. INR 0.9. CMP showed chloride 108. Magnesium 2.1. Troponin 0.095, 0.102 with EKG showing normal sinus rhythm. Chest x-ray negative for acute finding. Patient is admitted for chest pain, rule out acute coronary syndrome and cardiology consultation. Troponins uptrending to 0.151. He was started on a heparin drip. Cardiology was consulted and recommended cardiac cath. Cath showed 30-40% distal LAD, 20% diagonal 1 branch, ostial LCx 40-50%, proximal LCx 20-30%, OM 1 99% occlusion. Patient underwent PCI mid OM1 with a 3.25 x 15mm Xience CORTNEY. He reports no chest pain after his procedure. He is continued on ASA 81 mg PO QD, Effient 10 mg PO QD, Lipitor 40 mg PO QHS, Metoprolol 12.5 mg PO QD. Echocardiogram shows EF of 55-60%, mild RV dilation. Pt was d/c'd on DAPT, statin, metoprolol. He will f/u with cardiology in 1 week. I spent 34 minutes coordinating this discharge on 04/16 Gen: awake, alert HEENT: normocephalic, atraumatic, good hearing acuity, moist mucous membranes Resp: good air exchange, breathing comfortably with no accessory muscle use CVS: good distal perfusion x 4, GI: soft, NTTP, ND : no SPT, no CVAT, sewell catheter not present MSK: no pitting edema, no clubbing Neuro: non-focal, moving all extremities Psych: cooperative, euthymic mood Patient Condition at Discharge: Good Plan - Discharge Summary Discharge Rx Participant: No New Discharge Prescriptions: New Prasugrel [Effient] 10 mg PO DAILY #30 tab Metoprolol Succinate (ER) [Toprol XL] 12.5 mg PO DAILY #15 tab Acetaminophen Tab [Tylenol] 650 mg PO Q6HR PRN tab PRN Reason: Mild Pain Or Fever > 100.5 Atorvastatin [Lipitor] 40 mg PO HS #30 tab Continue Desvenlafaxine Succinate [Pristiq ER] 50 mg PO DAILY [place]-3/Dha/Epa/Fish Oil [Fish Oil 1,000 mg Softgel] 1 cap PO DAILY Albuterol Inhaler [Ventolin Hfa Inhaler] 1 - 2 puff INHALATION RT-Q6H PRN PRN Reason: Shortness Of Breath Fluticasone Propion/Salmeterol [Advair 250-50 Diskus] 1 puff INHALATION DIRECTED Aspirin EC [Ecotrin Low Dose] 81 mg PO Q48H traZODone HCL [Desyrel] 50 mg PO HS Multivitamins, Thera [Multivitamin (formulary)] 1 tab PO DAILY Cholecalciferol [Vitamin D3 (25 Mcg = 1000 Iu)] 50 mcg PO DAILY Discontinued Diclofenac Sodium [Voltaren] 75 mg PO BID Simvastatin [Zocor] 20 mg PO HS Discharge Medication List Desvenlafaxine Succinate [Pristiq ER] 50 mg PO DAILY 04/10/22 [History] Albuterol Inhaler [Ventolin Hfa Inhaler] 1 - 2 puff INHALATION RT-Q6H PRN 04/14/23 [History] Aspirin EC [Ecotrin Low Dose] 81 mg PO Q48H 04/14/23 [History] Cholecalciferol [Vitamin D3 (25 Mcg = 1000 Iu)] 50 mcg PO DAILY 04/14/23 [History] Fluticasone Propion/Salmeterol [Advair 250-50 Diskus] 1 puff INHALATION DIRECTED 04/14/23 [History] Multivitamins, Thera [Multivitamin (formulary)] 1 tab PO DAILY 04/14/23 [History] [place]-3/Dha/Epa/Fish Oil [Fish Oil 1,000 mg Softgel] 1 cap PO DAILY 04/14/23 [History] traZODone HCL [Desyrel] 50 mg PO HS 04/14/23 [History] Acetaminophen Tab [Tylenol] 650 mg PO Q6HR PRN tab 04/16/23 [Rx] Atorvastatin [Lipitor] 40 mg PO HS #30 tab 04/16/23 [Rx] Metoprolol Succinate (ER) [Toprol XL] 12.5 mg PO DAILY #15 tab 04/16/23 [Rx] Prasugrel [Effient] 10 mg PO DAILY #30 tab 04/16/23 [Rx] Follow up Appointment(s)/Referral(s): Robbie Light MD [Medical Doctor] - 1 Week (Office did not answer. Please call to schedule hospital follow up apt. ) Otto Joshi MD [Primary Care Provider] - 1-2 days (Office did not answer.Please call to schedule hospital follow up apt. ) Patient Instructions/Handouts: Heart Attack (DC), After Radial Heart Catheterization (GEN) Discharge Disposition: HOME SELF-CARE
== END 2023-04-16 12:31 | disposition home or self-care (01) | DRG 247 ==
LOC: EC 09:01 → 3SCARD 10:50
PROVIDERS: ADMIT Family Medicine; ATTEND Family Medicine
PROC: B2111ZZ Fluoroscopy of Multiple Coronary Arteries using Low Osmolar Contrast (ICD-10-PCS; 2023-04-15)
PROC: 027034Z Dilation of Coronary Artery, One Artery with Drug-eluting Intraluminal Device, Percutaneous Approach (ICD-10-PCS; principal; 2023-04-15 09:30)
PROC: 4A023N7 Measurement of Cardiac Sampling and Pressure, Left Heart, Percutaneous Approach (ICD-10-PCS; 2023-04-15 09:30)
DX: I21.4 Non-ST elevation (NSTEMI) myocardial infarction (principal); E66.3 Overweight; I25.110 Atherosclerotic heart disease of native coronary artery with unstable angina pectoris; F43.10 Post-traumatic stress disorder, unspecified; E78.5 Hyperlipidemia, unspecified; Z68.25 Body mass index [BMI] 25.0-25.9, adult; I10 Essential (primary) hypertension; Z79.899 Other long term (current) drug therapy; I08.1 Rheumatic disorders of both mitral and tricuspid valves; Z79.82 Long term (current) use of aspirin; M19.90 Unspecified osteoarthritis, unspecified site; Z82.49 Family history of ischemic heart disease and other diseases of the circulatory system; Z86.79 Personal history of other diseases of the circulatory system; Z98.61 Coronary angioplasty status; Z87.19 Personal history of other diseases of the digestive system
CPT/HCPCS: 36415; 71046; 80053; 80061; 82565; 83735; 84484; 85025; 85610; 85730; 93005; 93306; 93458; 96365; 96366; 96374; 99291